=== PATIENT | male | born 1970 ===

== ENCOUNTER 2017-04-01 17:59 | Emergency (ER) | payer OTHER ==
[2017-04-01 18:20] VITALS: BP 143/73; PULSE 88; RESP 18; TEMP 98.2; O2SAT 99
--- NOTE | 2017-04-01 20:02 | C.PDOC ---
History Of Present Illness 46 y/o male presents to the ED complaining of predominantly left groin pain associated with lower back pain that radiates down left leg x 2 days. 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 He reports of decreased sensation in lower leg and was concerned because he noticed some swelling to his lower leg area, specifically his veins. Time Seen by Provider: 04/01/17 18:32 Chief Complaint (Nursing): Lower Extremity Problem/Injury History Per: Patient History/Exam Limitations: no limitations Onset/Duration Of Symptoms: Days (2 days ago) Current Symptoms Are (Timing): Still Present - Hip Description Of Injury: Other (jumped off garbage truck) Past Medical History Reviewed: Historical Data, Nursing Documentation, Vital Signs Vital Signs: Last Vital Signs Temp 98.2 F 04/01/17 18:17 Pulse 88 04/01/17 18:17 Resp 18 04/01/17 18:17 BP 143/73 04/01/17 18:17 Pulse Ox 99 04/04/17 18:43 - Medical History PMH: No Chronic Diseases Surgical History: No Surg Hx Family History: States: Unknown Family Hx - Social History Hx Tobacco Use: No Hx Alcohol Use: No Hx Substance Use: No - Immunization History Hx Tetanus Toxoid Vaccination: No Review Of Systems Constitutional: Negative for: Fever Musculoskeletal: Positive for: Back Pain (lower back pain), Leg Pain (hip pain that raidates down left leg) Neurological: Negative for: Weakness Physical Exam - Physical Exam Appears: Non-toxic, No Acute Distress Skin: Normal Color, Warm Head: Atraumatic Eye(s): bilateral: Normal Inspection Neck: Normal ROM, No Midline Cervical Tenderness Cardiovascular: Rhythm Regular, No Murmur Respiratory: Normal Breath Sounds, No Wheezing Gastrointestinal/Abdominal: Soft, No Tenderness Back: Normal Inspection, Other (tenderness to left lumbar area) Extremity: Normal ROM, Tenderness (to left inguinal area, legft lateral calf), No Pedal Edema, Calf Tenderness (mild left posterior and lateral calf tenderness , no erythema or warmth), Other (ms 5/5; decreased sensation to anterior and lateral left lower leg) Pulses: Left Femoral: Normal, Right Femoral: Normal, Left Dorsalis Pedis: Normal , Right Dorsalis Pedis: Normal Neurological/Psych: Oriented x3, Normal Speech, Normal Motor, No Normal Sensation (mild decreased sensation left lateral calf) Gait: Steady ED Course And Treatment O2 Sat by Pulse Oximetry: 99 (RA) Pulse Ox Interpretation: Normal Medical Decision Making Medical Decision Making: Time: --20:22 Impression: --Musculoskeletal pain Plan: --toradol 30mg IM --Left Hip min 2v w/ pelvis X-ray Reassess -- Scribe Attestation: Documented by Erick Becker acting as a scribe for TANNA Villalobos. pt feeling better after toradol, no fx noted on xray. us lle by Dr Albarado neg for femoral or popliteal dvt. Disposition Counseled Patient/Family Regarding: Studies Performed, Diagnosis, Need For Followup, Rx Given - Disposition Referrals: [facility] [Outside] Disposition: HOME/ ROUTINE Disposition Time: 21:24 Condition: IMPROVED Additional Instructions: Please avoid heavy lifting and jumping. Take ibuprofen as prescribed. Follow up in medical clinic. Return to ER for any worse symptoms. Prescriptions: Naproxen 500 mg PO BID #20 tab Instructions: Groin Strain (ED) Forms: General Discharge Instructions, [facility] (Arabic), Work Excuse - Clinical Impression Clinical Impression: Strain of groin - Scribe Statement Scribe Attestation: Documented by Erick Becker acting as a scribe for TANNA Villalobos.
--- NOTE | 2017-04-02 10:43 | RAD ---
PROCEDURE: Left Hip X-ray Radiographs. HISTORY: groin pain radiating to lower leg COMPARISON: None. FINDINGS: BONES: Normal. No fracture. JOINTS: Normal. SOFT TISSUES: Normal. OTHER FINDINGS: None. IMPRESSION: Normal left hip radiographs.
== END 2017-04-01 21:41 | disposition home or self-care (01) ==
LOC: C.ER 17:59
DX: S39.011A Strain of muscle, fascia and tendon of abdomen, initial encounter (principal); X50.1XXA Overexertion from prolonged static or awkward postures, initial encounter; Y92.89 Other specified places as the place of occurrence of the external cause
CPT/HCPCS: 73502; 96372; 99283; J1885

== ENCOUNTER 2017-05-14 09:38 | Emergency (ER) | payer OTHER ==
[2017-05-14 10:06] VITALS: BMI 30.5
[2017-05-14 10:11] VITALS: BP 120/79; PULSE 73; RESP 18; TEMP 97.9; O2SAT 98
--- NOTE | 2017-05-14 11:23 | C.PDOC ---
History Of Present Illness Pt lifted a heavy object at work this morning and hand sudden onset of left lower back/left buttock pain radiating down left thigh. Time Seen by Provider: 05/14/17 10:27 Chief Complaint (Nursing): Back Pain History Per: Patient Onset/Duration Of Symptoms: Hrs (this morning), Sudden Onset Current Symptoms Are (Timing): Still Present Quality Of Discomfort: "Pain" Severity: Moderate Previous Symptoms: Back Pain Associated Symptoms: None Additional History Per: Prior Records Past Medical History Reviewed: Historical Data, Nursing Documentation, Vital Signs Vital Signs: Last Vital Signs Temp 97.9 F 05/14/17 10:06 Pulse 73 05/14/17 10:06 Resp 18 05/14/17 10:06 BP 120/79 05/14/17 10:06 Pulse Ox 98 05/14/17 11:23 - Medical History PMH: No Chronic Diseases Surgical History: No Surg Hx Family History: States: Unknown Family Hx - Social History Hx Tobacco Use: No Hx Alcohol Use: No Hx Substance Use: No - Immunization History Hx Tetanus Toxoid Vaccination: No Hx Influenza Vaccination: No Hx Pneumococcal Vaccination: No Review Of Systems Except As Marked, All Systems Reviewed And Found Negative. Constitutional: Negative for: Fever, Weakness Cardiovascular: Negative for: Chest Pain Respiratory: Negative for: Shortness of Breath Gastrointestinal: Negative for: Vomiting, Abdominal Pain Genitourinary: Negative for: Dysuria, Incontinence, Hematuria Musculoskeletal: Negative for: Neck Pain Skin: Negative for: Rash Neurological: Negative for: Weakness, Numbness Physical Exam - Physical Exam Appears: Non-toxic, No Acute Distress Skin: Normal Color, Warm, Dry, No Rash Head: Atraumatic, Normacephalic Eye(s): bilateral: Normal Inspection, PERRL, EOMI Neck: Normal ROM, Supple Cardiovascular: Rhythm Regular Respiratory: Normal Breath Sounds, No Accessory Muscle Use Gastrointestinal/Abdominal: Soft, No Tenderness, No Mass Back: No CVA Tenderness, No Vertebral Tenderness Extremity: Normal ROM, No Pedal Edema, No Calf Tenderness Neurological/Psych: Oriented x3, Normal Motor, Normal Sensation ED Course And Treatment O2 Sat by Pulse Oximetry: 98 Pulse Ox Interpretation: Normal Reassessment Condition: Improved Disposition Counseled Patient/Family Regarding: Diagnosis, Need For Followup, Rx Given - Disposition Referrals: [facility] [Outside] Disposition: HOME/ ROUTINE Disposition Time: 11:37 Condition: IMPROVED Additional Instructions: Follow up with your doctor or in the clinic for further evaluation and treatment. Return to the ER if you develop weakness, numbness, trouble urinating , worsening of symptoms or if you have any other concerns. Prescriptions: Naproxen [Naprosyn] 1 tab PO BID PRN #20 PRN Reason: Pain Instructions: Sciatica (DC) - Clinical Impression Clinical Impression: Left sided sciatica
== END 2017-05-14 12:12 | disposition home or self-care (01) ==
LOC: C.ER 09:38
DX: M54.32 Sciatica, left side (principal)

== ENCOUNTER 2017-09-07 08:01 | Inpatient (IN) | payer OTHER ==
[2017-09-07 08:01] VITALS: BMI 30.5
[2017-09-07] MEDS ORDERED: Piperacillin/Tazobact 3.375 GM in Sodium Chloride 100 ML IVPB STA (08:16)
[2017-09-07] MEDS ORDERED: Sodium Chloride 0.9% 1,000 ML IV ONE (08:16)
[2017-09-07] MEDS ORDERED: Vancomycin 1 gm/NS 200 ml 1 GM/200 ML BAG IVPB STA (08:28)
[2017-09-07 08:35] LABS: BASO # 0.1 K/uL (0.0-0.2); BASO % 0.5 % (0.0-2.0); EOS % 0.1 % (0.0-4.0); HEMOGLOBIN 13.3 g/dL (12.0-18.0); LYMPH # 0.5 K/uL (1.0-4.3); LYMPH % 3.4 % (20.0-40.0); MEAN CELL VOLUME 79.7 fL (80.0-94.0); MEAN CORPUSCULAR HEMOGLOBIN 26.6 pg (27.0-31.0); MEAN CORPUSCULAR HGB CONC 33.4 g/dL (33.0-37.0); MEAN PLATELET VOLUME 7.5 fL (7.2-11.7); MONO # 0.6 K/uL (0.0-0.8); MONO % 4.2 % (0.0-10.0); NEUT # 13.9 K/uL (1.8-7.0); NEUT % 91.8 % (50.0-75.0); NRBC % 0.1 % (0.0-2.0); PLATELET COUNT 225 K/uL (130-400); RBC 4.99 Mil/uL (4.40-5.90); RED CELL DISTRIBUTION WIDTH 13.5 % (11.5-14.5); WHITE BLOOD COUNT 15.1 K/uL (4.8-10.8)
[2017-09-07 08:45] LABS: INR 1.4; PROTHROMBIN TIME 15.7 SECONDS (9.7-12.2)
[2017-09-07 08:53] LABS: ALBUMIN 4.1 g/dL (3.5-5.0); ALT/SGPT 36 U/L (21-72); AST/SGOT 34 U/L (17-59); BLOOD UREA NITROGEN 12 mg/dL (9-20); CALCIUM 8.5 mg/dl (8.6-10.4); GFR AFRICAN-AMERICAN > 60; GFR NON-AFRICAN AMERICAN > 60; LIPASE 23 U/L (23-300)
[2017-09-07 09:02] LABS: BANDS 9 % (0-2); LYMPHOCYTE 4 % (20-40); MONOCYTE 4 % (0-10); NEUTROPHIL 83 % (50-75); TOTAL CELLS COUNTED 100
[2017-09-07 09:03] LABS: PLATELET ESTIMATE NORMAL (NORMAL)
[2017-09-07 09:12] LABS: URINE BILIRUBIN NEGATIVE (NEGATIVE); URINE BLOOD 1+ (NEGATIVE); URINE CLARITY Clear (Clear); URINE COLOR Yellow (YELLOW); URINE GLUCOSE (UA) 1+ mg/dL (Normal); URINE LEUKOCYTE ESTERASE NEG Leu/uL (Negative); URINE PROTEIN 2+ mg/dL (NEGATIVE)
--- NOTE | 2017-09-07 09:17 | C.PDOC ---
History Of Present Illness 47-year-old male, presents to the emergency department with complaints of scrotal swelling, pain, dysuria, nausea, and tactile fever for the past few days. Patient denies any vomiting, back pain, shortness of breath or any other associated symptoms. No other complaints at this time. Time Seen by Provider: 09/07/17 08:10 Chief Complaint (Nursing): Male Genitourinary History Per: Patient History/Exam Limitations: no limitations Onset/Duration Of Symptoms: Days Current Symptoms Are (Timing): Still Present Severity: Moderate Past Medical History Reviewed: Historical Data, Nursing Documentation, Vital Signs Vital Signs: Last Vital Signs Temp 98.2 F 09/07/17 15:30 Pulse 93 H 09/07/17 15:30 Resp 20 09/07/17 15:30 BP 111/65 09/07/17 15:30 Pulse Ox 96 09/07/17 15:30 Family History: States: No Known Family Hx - Social History Hx Tobacco Use: No Hx Alcohol Use: Yes Hx Substance Use: No - Immunization History Hx Tetanus Toxoid Vaccination: No Hx Influenza Vaccination: No Hx Pneumococcal Vaccination: No Review Of Systems Except As Marked, All Systems Reviewed And Found Negative. Constitutional: Positive for: Fever. Negative for: Chills Respiratory: Negative for: Cough, Shortness of Breath Gastrointestinal: Negative for: Nausea, Vomiting Genitourinary: Positive for: Dysuria, Scrotal Pain (+swelling) Neurological: Negative for: Weakness, Numbness, Headache, Dizziness Physical Exam - Physical Exam Appears: Non-toxic, No Acute Distress Skin: Normal Color, Warm, Dry Head: Atraumatic, Normacephalic Eye(s): bilateral: Normal Inspection, PERRL, EOMI Nose: Normal Oral Mucosa: Moist Lips: Normal Appearing Neck: Normal ROM Cardiovascular: Rhythm Regular, No Murmur Respiratory: Normal Breath Sounds, No Accessory Muscle Use Gastrointestinal/Abdominal: Soft, No Tenderness, No Guarding, No Rebound Back: Normal Inspection Male Genital: Other (swelling and erythema to left scrotal area with perineum involvement, no crepitus. No sign of gangrene) Extremity: Normal ROM, No Deformity, No Swelling Neurological/Psych: Oriented x3, Normal Speech ED Course And Treatment - Laboratory Results Result Diagrams: 09/07/17 08:31 09/07/17 08:31 O2 Sat by Pulse Oximetry: 97 (RA) Pulse Ox Interpretation: Normal Medical Decision Making Medical Decision Making: Surgery resident paged at 830 am, 9 am, 11am- awaiting call back surgical consult for Dr. Maher urology consult for Dr. Mundo Rush discussed with hospatalist and will admit to medical surgical floor 1500 - discussed with surgical garment fitter and since case involves scrotal abscess will cancel surgical consult for now. . Disposition Discussed With Dr.: Jose Fitzgerald Doctor Will See Patient In The: ED Counseled Patient/Family Regarding: Studies Performed, Diagnosis - Disposition Disposition: HOSPITALIZED Disposition Time: 10:36 Condition: FAIR - Clinical Impression Clinical Impression: Scrotal abscess - Scribe Statement The provider has reviewed the documentation as recorded by the Scribe (Sujatha Loera) All medical record entries made by the Scribe were at my direction and personally dictated by me. I have reviewed the chart and agree that the record accurately reflects my personal performance of the history, physical exam, medical decision making, and the department course for this patient. I have also personally directed, reviewed, and agree with the discharge instructions and disposition.
--- NOTE | 2017-09-07 10:06 | US ---
HISTORY: scrotal pain apparently the pain is on each side of the scrotum slightly worse in the left Peter left scrotal swelling reference. According to the technologist the patient's history is that of an abrupt clinical presentation- starting last night TECHNIQUE: Realtime sonography through the scrotum with color and doppler flow. COMPARISON: None Available. FINDINGS: RIGHT TESTICLE: Measures 4.1 x 1.5 x 2 point sick cm. Normal echotexture and flow. RIGHT EPIDIDYMIS: The anatomy of the right epididymis is indeterminate from probably portions of the right epididymal head are identified measuring 1.0 x 0.9 x 1.1 cm. The flow here appear within normal limits. LEFT TESTICLE: Measures 3.9 x 1.9 x 2.4 cm. Normal echotexture and flow. LEFT EPIDIDYMIS: The anatomy of the left epididymis is also indeterminate more so than that on the right. Cm. The flow here appears probably top-normal to minimally increased HYDROCELE: No large right sided hydroceles are noted. Anterior to the left testicle it is a each elongated homogeneously hypoechoic collection walled which may represent an early forming abscess or a septic/ infectious/inflammatory complex left hydrocele. This collection measures 3.0 x 1.2 x 4.1 cm. VARICOCELE: None. OTHER FINDINGS: Marked swelling an apparent subcutaneous and dermal thickening inferior to the left testicle. There are calcifications extrinsic to the testicle within the scrotal sac present. IMPRESSION: No intratesticular masses identified. 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 A developing left intrascrotal extratesticular abscess/ or a septic/ infectious/inflammatory complex left hydrocele needs to be considered. Asymmetric left skin and left subcutaneous edema and thickening -affecting the left scrotal sac. The type of infection and or inflammatory etiology is unknown. A preceding bilateral epididymitis process is suspect -most notably affecting the left. Urological follow-up consultation recommended
[2017-09-07] MEDS ORDERED: Morphine 4 MG/ML VIAL IV STA (10:20)
--- NOTE | 2017-09-07 12:03 | CP.PCM.HP ---
<Tay Santiago - Last Filed: 09/07/17 12:51> History of Present Illness - History of Present Illness History of Present Illness: CC: swollen testicles HPI: Mr Mathis is a 47 year old male with no past medical history (due to not seeing a PMD) who presents to [facility] ER because he stated he had a sudden onset of scrotal pain and swelling which began yesterday morning. He said this sudden pain and swelling was not preceded by erythema, urinary symptoms, fevers , or genital pain. The nature of his complain is completely sudden in onset. 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 He said since the swelling began, it has become progressively worse. The swelling and pain is worse on the left scrotum. Mild pain on urination. Admits to suprapubic pain. He had a temperate of 100.3 yesterday for which he took a motrin which resolved the high temp. Denies abnormal bowel movements, abdominal pain, chest pain, nausea, vomiting. PMHx: denies PSHx: denies Allergies: denies Home meds: none FamHx: Mother with asthma and CAD SocialHx: smokes 3 cigs per day for past 17 years, social alcohol use, denies illicit drug use, works in sanitation, lives at home with and 2 kids PMD: none Code Status: Full Code Emergency Contact: () Jess Cordero [phone] Present on Admission - Present on Admission Any Indicators Present on Admission: No Review of Systems - Constitutional Constitutional: Fever, Headache. absent: Chills, Fatigue, Lethargy - EENT Eyes: absent: Blurred Vision Nose/Mouth/Throat: absent: Nasal Congestion - Cardiovascular Cardiovascular: absent: Chest Pain, Palpitations - Respiratory Respiratory: absent: Cough, Dyspnea, Dyspnea on Exertion - Gastrointestinal Gastrointestinal: Abdominal Pain. absent: Constipation, Diarrhea, Nausea, Vomiting Additional comments: suprapubic pain - Genitourinary Genitourinary: Dysuria. absent: Flank Pain, Freq UTI - Musculoskeletal Musculoskeletal: Back Pain - Integumentary Integumentary: absent: Bleeding Lesions - Neurological Neurological: absent: Confusion Past Patient History - Past Social History Smoking Status: Current Some Days Smoker - PSYCHIATRIC Hx Substance Use: No - SURGICAL HISTORY Hx Surgeries: No - ANESTHESIA Hx Anesthesia: No Meds Allergies/Adverse Reactions: Allergies Allergy/AdvReac Type Severity Reaction Status Date / Time No Known Allergies Allergy Verified 09/07/17 08:05 Physical Exam - Constitutional Appears: Well, Non-toxic, No Acute Distress - Head Exam Head Exam: ATRAUMATIC, NORMAL INSPECTION - Eye Exam Eye Exam: EOMI. absent: Scleral icterus Pupil Exam: PERRL - ENT Exam ENT Exam: Mucous Membranes Moist - Neck Exam Neck exam: Positive for: Full Rom, Normal Inspection. Negative for: Tenderness - Respiratory Exam Respiratory Exam: Clear to Auscultation Bilateral, NORMAL BREATHING PATTERN. absent: Rales, Rhonchi, Wheezes - Cardiovascular Exam Cardiovascular Exam: Tachycardia, REGULAR RHYTHM, +S1, +S2. absent: JVD, Systolic Murmur - GI/Abdominal Exam GI & Abdominal Exam: Normal Bowel Sounds, Soft, Tenderness. absent: Distended, Firm, Guarding, Hernia, Rebound Additional comments: suprapubic tenderness L>R - Exam Exam: Scrotal Swelling, Testicular Tenderness External exam: Swelling. absent: NORMAL EXTERNAL EXAM Additional comments: Prominent scrotal swelling L>R with perineum involvement, no signs of gangrene scrotum tender to palpation - Extremities Exam Extremities exam: Positive for: normal capillary refill, normal inspection. Negative for: calf tenderness - Back Exam Back exam: NORMAL INSPECTION. absent: CVA tenderness (L), CVA tenderness (R) - Neurological Exam Neurological exam: Alert, CN II-XII Intact, Oriented x3 - Psychiatric Exam Psychiatric exam: Normal Affect, Normal Mood - Skin Skin Exam: Intact, Normal Color, Warm Results - Vital Signs Recent Vital Signs: Last Vital Signs Temp 98.4 F 09/07/17 10:28 Pulse 100 H 09/07/17 11:40 Resp 18 09/07/17 11:40 BP 125/81 09/07/17 11:40 Pulse Ox 99 09/07/17 11:40 - Labs Result Diagrams: 09/07/17 08:31 09/07/17 08:31 Labs: Laboratory Results - last 24 hr 09/07/17 09/07/17 09/07/17 08:31 08:31 08:31 WBC 15.1 H RBC 4.99 Hgb 13.3 Hct 39.8 MCV 79.7 L MCH 26.6 L MCHC 33.4 RDW 13.5 Plt Count 225 MPV 7.5 Neut % (Auto) 91.8 H Lymph % (Auto) 3.4 L [place] % (Auto) 4.2 Eos % (Auto) 0.1 Baso % (Auto) 0.5 Neut # (Auto) 13.9 H Lymph # (Auto) 0.5 L [place] # (Auto) 0.6 Eos # (Auto) 0.0 Baso # (Auto) 0.1 Neutrophils % (Manual) 83 H Band Neutrophils % 9 H Lymphocytes % (Manual) 4 L Monocytes % (Manual) 4 Platelet Estimate Normal RBC Morphology Normal PT INR APTT Sodium 136 Potassium 3.6 Chloride 102 Carbon Dioxide 23 Anion Gap 16 BUN 12 Creatinine 1.0 Est GFR ( Amer) > 60 Est GFR (Non-Af Amer) > 60 Random Glucose 194 H Lactic Acid 1.8 Calcium 8.5 L Total Bilirubin 2.1 H AST 34 ALT 36 Alkaline Phosphatase 84 Total Protein 8.1 Albumin 4.1 Globulin 4.0 H Albumin/Globulin Ratio 1.0 Lipase 23 Urine Color Urine Clarity Urine pH Ur Specific [place] Urine Protein Urine Glucose (UA) Urine Ketones Urine Blood Urine Nitrate Urine Bilirubin Urine Urobilinogen Ur Leukocyte Esterase Urine WBC (Auto) Urine RBC (Auto) 09/07/17 09/07/17 08:31 08:52 WBC RBC Hgb Hct MCV MCH MCHC RDW Plt Count MPV Neut % (Auto) Lymph % (Auto) [place] % (Auto) Eos % (Auto) Baso % (Auto) Neut # (Auto) Lymph # (Auto) [place] # (Auto) Eos # (Auto) Baso # (Auto) Neutrophils % (Manual) Band Neutrophils % Lymphocytes % (Manual) Monocytes % (Manual) Platelet Estimate RBC Morphology PT 15.7 H INR 1.4 APTT 29 Sodium Potassium Chloride Carbon Dioxide Anion Gap BUN Creatinine Est GFR ( Amer) Est GFR (Non-Af Amer) Random Glucose Lactic Acid Calcium Total Bilirubin AST ALT Alkaline Phosphatase Total Protein Albumin Globulin Albumin/Globulin Ratio Lipase Urine Color Yellow Urine Clarity Clear Urine pH 7.0 Ur Specific [place] 1.021 Urine Protein 2+ H Urine Glucose (UA) 1+ H Urine Ketones Trace Urine Blood 1+ H Urine Nitrate Negative Urine Bilirubin Negative Urine Urobilinogen 2.0 Ur Leukocyte Esterase Neg Urine WBC (Auto) 2 Urine RBC (Auto) 12 H Assessment & Plan (1) Scrotal abscess Assessment and Plan: Meets Sepsis criteria, elevated wbc, tachy, bands, with source Consult surgery, Dr Maher Consult urology, Dr Dora Rush Consult infectious disease, Dr Feliz Will order EKG, CXR, coags in case patient goes to OR, will keep NPO for now Diagnostics: UA: 2+ protein, 1+ glucose, 1+ blood, rbc 12 F/U Blood cx, Urine cx Imaging: Testicular Ultrasound 09/07: * No intratesticular masses identified. 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 A developing left intrascrotal extratesticular abscess/ or a septic/ infectious/ inflammatory complex left hydrocele needs to be considered. Asymmetric left skin and left subcutaneous edema and thickening -affecting the left scrotal sac. The type of infection and or inflammatory etiology is unknown. A preceding bilateral epididymitis process is suspect -most notably affecting the left. Urological follow-up consultation recommended. Meds: Meropenem 500mg IVP Q8H Florastor 250mg PO BID Ketorolac 15mg IVP Q6H PRN for moderate pain Ketorolac 30mg IVP Q6H PRN for severe pain Status: Acute Priority: High (2) Prophylactic measure Assessment and Plan: Protonix 40mg PO QD SCDs NPO for now Status: Acute Priority: Low <Jose Fitzgerald - Last Filed: 09/07/17 22:01> Results - Vital Signs Recent Vital Signs: Last Vital Signs Temp 98.2 F 09/07/17 15:30 Pulse 93 H 09/07/17 15:30 Resp 20 09/07/17 15:30 BP 111/65 09/07/17 15:30 Pulse Ox 97 09/07/17 17:29 - Labs Result Diagrams: 09/07/17 08:31 09/07/17 08:31 Labs: Laboratory Results - last 24 hr 09/07/17 09/07/17 09/07/17 08:31 08:31 08:31 WBC 15.1 H RBC 4.99 Hgb 13.3 Hct 39.8 MCV 79.7 L MCH 26.6 L MCHC 33.4 RDW 13.5 Plt Count 225 MPV 7.5 Neut % (Auto) 91.8 H Lymph % (Auto) 3.4 L [place] % (Auto) 4.2 Eos % (Auto) 0.1 Baso % (Auto) 0.5 Neut # (Auto) 13.9 H Lymph # (Auto) 0.5 L [place] # (Auto) 0.6 Eos # (Auto) 0.0 Baso # (Auto) 0.1 Neutrophils % (Manual) 83 H Band Neutrophils % 9 H Lymphocytes % (Manual) 4 L Monocytes % (Manual) 4 Platelet Estimate Normal RBC Morphology Normal PT INR APTT Sodium 136 Potassium 3.6 Chloride 102 Carbon Dioxide 23 Anion Gap 16 BUN 12 Creatinine 1.0 Est GFR ( Amer) > 60 Est GFR (Non-Af Amer) > 60 Random Glucose 194 H Lactic Acid 1.8 Calcium 8.5 L Total Bilirubin 2.1 H AST 34 ALT 36 Alkaline Phosphatase 84 Total Protein 8.1 Albumin 4.1 Globulin 4.0 H Albumin/Globulin Ratio 1.0 Lipase 23 Urine Color Urine Clarity Urine pH Ur Specific [place] Urine Protein Urine Glucose (UA) Urine Ketones Urine Blood Urine Nitrate Urine Bilirubin Urine Urobilinogen Ur Leukocyte Esterase Urine WBC (Auto) Urine RBC (Auto) 09/07/17 09/07/17 08:31 08:52 WBC RBC Hgb Hct MCV MCH MCHC RDW Plt Count MPV Neut % (Auto) Lymph % (Auto) [place] % (Auto) Eos % (Auto) Baso % (Auto) Neut # (Auto) Lymph # (Auto) [place] # (Auto) Eos # (Auto) Baso # (Auto) Neutrophils % (Manual) Band Neutrophils % Lymphocytes % (Manual) Monocytes % (Manual) Platelet Estimate RBC Morphology PT 15.7 H INR 1.4 APTT 29 Sodium Potassium Chloride Carbon Dioxide Anion Gap BUN Creatinine Est GFR ( Amer) Est GFR (Non-Af Amer) Random Glucose Lactic Acid Calcium Total Bilirubin AST ALT Alkaline Phosphatase Total Protein Albumin Globulin Albumin/Globulin Ratio Lipase Urine Color Yellow Urine Clarity Clear Urine pH 7.0 Ur Specific [place] 1.021 Urine Protein 2+ H Urine Glucose (UA) 1+ H Urine Ketones Trace Urine Blood 1+ H Urine Nitrate Negative Urine Bilirubin Negative Urine Urobilinogen 2.0 Ur Leukocyte Esterase Neg Urine WBC (Auto) 2 Urine RBC (Auto) 12 H Attending/Attestation - Attestation I have personally seen and examined this patient.: Yes I have fully participated in the care of the patient.: Yes I have reviewed all pertinent clinical information: Yes Notes (Text): 09/07/17 21:59 Patient was seen and examined with resident. History, Physical, Assessment and Plan were gone over with the resident. Please also note on exam: Bilateral groin fungal rash Also on Assessment and Plan: Bilateral Fungal Rash: Nystatin Powder 2x/day for 14 days from 09/07/17 F/U Hepatitis Panel F/U HIV Panel F/U MRSA Screen Spoke with Urology Dr. Mundo Rush: would like the patient on 24 to 48 hours of IV antibiotics to see if there is improvement in the scrotom and if not then consider I&D by him. Jose Fitzgerald D.O.
[2017-09-07] MEDS ORDERED: Pantoprazole 40 mg EC Tab PO SCH (12:45)
[2017-09-07] MEDS: Meropenem 500 MG in Sodium Chloride 0.9% 100 ML IVPB SCH ×2 (13:58→21:07)
--- NOTE | 2017-09-07 14:14 | RAD ---
HISTORY: pre-op COMPARISON: No prior. TECHNIQUE: Chest PA and lateral FINDINGS: LUNGS: No active pulmonary disease. PLEURA: No significant pleural effusion identified. No pneumothorax apparent. CARDIOVASCULAR: Normal. OSSEOUS STRUCTURES: No significant abnormalities. VISUALIZED UPPER ABDOMEN: Normal. OTHER FINDINGS: None. IMPRESSION: No active disease.
[2017-09-07] MEDS: Saccharomyces Boulardi 250 mg Cap PO SCH (17:31)
--- NOTE | 2017-09-07 19:03 | CP.PCM.CON ---
History of Present Illness - History of Present Illness History of Present Illness: 47 year old male presents to [facility] ER because of scrotal pain and swelling which began yesterday morning. He had a temperate of 100.3 yesterday for which he took a motrin which resolved the high temp. Denies abnormal bowel movements, abdominal pain, chest pain, nausea, vomiting. found to have scrotal cellulitis and epididmitis IV antibiotic in progress PMHx: denies PSHx: denies Allergies: denies Home meds: none FamHx: Mother with asthma and CAD SocialHx: smokes 3 cigs per day for past 17 years, social alcohol use, denies illicit drug use, works in sanitation, lives at home with and 2 kids Review of Systems - Review of Systems All systems: reviewed and no additional remarkable complaints except - Constitutional Constitutional: As Per HPI - EENT Eyes: absent: As Per HPI, Blind Spots, Blurred Vision, Change in Vision, Decreased Night Vision, Diplopia, Discharge, Dry Eye, Exophthalmos, Floaters, Irritation, Itchy Eyes, Loss of Peripheral Vision, Pain, Photophobia, Requires Corrective Lenses, Sees Flashes, Spots in Vision, Tunnel Vision, Other Visual Disturbances, Loss of Vision, Other Ears: absent: As Per HPI, Decreased Hearing, Ear Discharge, Ear Pain, Tinnitus, Abnormal Hearing, Disequilibrium, Dizziness, Other Nose/Mouth/Throat: absent: As Per HPI, Epistaxis, Nasal Congestion, Nasal Discharge, Nasal Obstruction, Nasal Trauma, Nose Pain, Post Nasal Drip, Sinus Pain, Sinus Pressure, Bleeding Gums, Change in Voice, Dental Pain, Dry Mouth, Dysphagia, Halitosis, Hoarsness, Lip Swelling, Mouth Lesions, Mouth Pain, Odynophagia, Sore Throat, Throat Swelling, Tongue Swelling, Facial Pain, Neck Pain, Neck Mass, Other - Cardiovascular Cardiovascular: absent: As Per HPI, Acrocyanosis, Chest Pain, Chest Pain at Rest , Chest Pain with Activity, Claudication, Diaphoresis, Dyspnea, Dyspnea on Exertion, Edema, Irregular Heart Rhythm, Pain Radiating to Arm/Neck/Jaw, Leg Edema, Leg Ulcers, Lightheadedness, Orthopnea, Palpitations, Paroxysmal Nocturnal Dyspnea, Pedal Edema, Radiating Pain, Rapid Heart Rate, Slow Heart Rate, Syncope, Other - Respiratory Respiratory: absent: As Per HPI, Cough, Dyspnea, Hemoptysis, Dyspnea on Exertion , Wheezing, Snoring, Stridor, Pain on Inspiration, Chest Congestion, Excessive Mucous Production, Change in Mucous Color, Pain with Coughing, Other - Gastrointestinal Gastrointestinal: absent: As Per HPI, Abdominal Pain, Belching, Bloating, Change in Bowel Habits, Change in Stool Character, Coffee Ground Emesis, Constipation, Cramping, Diarrhea, Dyspepsia, Dysphagia, Early Satiety, Excessive Flatus, Fecal Incontinence, Heartburn, Hematemesis, Hematochezia, Loose Stools, Melena, Nausea, Odynophagia, Temesmus, Vomiting, Other - Genitourinary Genitourinary: As Per HPI - Musculoskeletal Musculoskeletal: absent: As Per HPI, Abnormal Gait, Arthralgias, Atrophy, Back Pain, Deformity, Joint Swelling, Limited Range of Motion, Loss of Height, Muscle Cramps, Muscle Weakness, Myalgias, Neck Pain, Numbness, Radiating Pain into Limb, Stiffness, Tingling, Other - Integumentary Integumentary: As Per HPI - Neurological Neurological: absent: As Per HPI, Abnormal Gait, Abnormal Hearing, Abnormal Movements, Abnormal Speech, Behavioral Changes, Burning Sensations, Confusion, Convulsions, Disequilibrium, Dizziness, Numbness, Focal Weakness, Frequent Falls , Headaches, Lack of Coordination, Loss of Vision, Memory Loss, Paresthesias, Radicular Pain, Restless Legs, Sensory Deficit, Syncope, Tingling, Tremor, Vertigo, Weakness, Other Visual Disturbances, Other - Psychiatric Psychiatric: absent: As Per HPI, Abnormal Sleep Pattern, Anhedonia, Anxiety, Auditory Hallucinations, Behavioral Changes, Change in Appetite, Change in Libido, Confusion, Depression, Difficulty Concentrating, Hallucinations, Homicidal Ideation, Hopelessness, Irritability, Memory Loss, Mood Swings, Panic Attacks, Paranoia, Suicidal Ideation, Visual Hallucinations, Tactile Hallucinations, Other - Endocrine Endocrine: absent: As Per HPI, Change in Body Appearance, Change in Libido, Cold Intolorance, Deepening of Voice, Excessive Sweating, Fatigue, Flushing, Heat Intolorance, Increase in Ring/Shoe/Hat Size, Palpitations, Polydipsia, Polyphagia, Polyuria, Other - Hematologic/Lymphatic Hematologic: absent: As Per HPI, Easy Bleeding, Easy Bruising, Lymphadenopathy, Other Past Patient History - Past Medical History & Family History Past Medical History?: No - Past Social History Smoking Status: Current Some Days Smoker - MUSCULOSKELETAL/RHEUMATOLOGICAL Hx Falls: No - PSYCHIATRIC Hx Substance Use: No - SURGICAL HISTORY Hx Surgeries: No - ANESTHESIA Hx Anesthesia: No Meds Allergies/Adverse Reactions: Allergies Allergy/AdvReac Type Severity Reaction Status Date / Time No Known Allergies Allergy Verified 09/07/17 08:05 - Medications Medications: Current Medications Meropenem 500 mg/ Sodium (Chloride) 100 mls @ 200 mls/hr IVPB Q8 SILVINO PRN Reason: Protocol Last Admin: 09/07/17 13:58 Dose: 200 mls/hr Ketorolac Tromethamine (Toradol) 30 mg IVP Q6 PRN PRN Reason: Pain, severe (8-10) Last Admin: 09/07/17 14:04 Dose: 30 mg Ketorolac Tromethamine (Toradol) 15 mg IVP Q6H PRN PRN Reason: Pain, moderate (4-7) Nystatin (Nystop Topical Powder) 1 applic TOP BID [facility] Stop: 09/21/17 13:57 Last Admin: 09/07/17 17:31 Dose: 1 applic Pantoprazole Sodium (Protonix Ec Tab) 40 mg PO DAILY [facility] Last Admin: 09/07/17 14:00 Dose: 40 mg Pneumococcal Polyvalent Vaccine (Pneumovax 23 Vaccine) 0.5 ml IM .ONCE ONE Stop: 09/09/17 10:01 Saccharomyces Boulardii (Florastor) 250 mg PO BID [facility] Last Admin: 09/07/17 17:31 Dose: 250 mg Physical Exam - Constitutional Appears: Non-toxic, No Acute Distress - Head Exam Head Exam: NORMOCEPHALIC - Eye Exam Eye Exam: PERRL. absent: Scleral icterus - ENT Exam ENT Exam: Mucous Membranes Dry - Neck Exam Neck exam: Negative for: Lymphadenopathy - Respiratory Exam Respiratory Exam: Decreased Breath Sounds - Cardiovascular Exam Cardiovascular Exam: REGULAR RHYTHM - GI/Abdominal Exam GI & Abdominal Exam: Diminished Bowel Sounds, Soft. absent: Tenderness - Rectal Exam Rectal Exam: Deferred - Exam Exam: NORMAL INSPECTION - Extremities Exam Extremities exam: Negative for: pedal edema - Back Exam Back exam: absent: CVA tenderness (L), CVA tenderness (R) - Neurological Exam Neurological exam: Alert, CN II-XII Intact, Oriented x3, Reflexes Normal - Psychiatric Exam Psychiatric exam: Normal Mood - Skin Skin Exam: Dry, Intact Results - Vital Signs Recent Vital Signs: Last Vital Signs Temp 98.2 F 09/07/17 15:30 Pulse 93 H 09/07/17 15:30 Resp 20 09/07/17 15:30 BP 111/65 09/07/17 15:30 Pulse Ox 97 09/07/17 17:29 - Labs Result Diagrams: 09/07/17 08:31 09/07/17 08:31 Labs: Laboratory Results - last 24 hr 09/07/17 09/07/17 09/07/17 08:31 08:31 08:31 WBC 15.1 H RBC 4.99 Hgb 13.3 Hct 39.8 MCV 79.7 L MCH 26.6 L MCHC 33.4 RDW 13.5 Plt Count 225 MPV 7.5 Neut % (Auto) 91.8 H Lymph % (Auto) 3.[address] [place] % (Auto) 4.2 Eos % (Auto) 0.1 Baso % (Auto) 0.5 Neut # (Auto) 13.9 H Lymph # (Auto) 0.[address] [place] # (Auto) 0.6 Eos # (Auto) 0.0 Baso # (Auto) 0.1 Neutrophils % (Manual) 83 H Band Neutrophils % 9 H Lymphocytes % (Manual) 4 L Monocytes % (Manual) 4 Platelet Estimate Normal RBC Morphology Normal PT INR APTT Sodium 136 Potassium 3.6 Chloride 102 Carbon Dioxide 23 Anion Gap 16 BUN 12 Creatinine 1.0 Est GFR ( Amer) > 60 Est GFR (Non-Af Amer) > 60 Random Glucose 194 H Lactic Acid 1.8 Calcium 8.5 L Total Bilirubin 2.1 H AST 34 ALT 36 Alkaline Phosphatase 84 Total Protein 8.1 Albumin 4.1 Globulin 4.0 H Albumin/Globulin Ratio 1.0 Lipase 23 Urine Color Urine Clarity Urine pH Ur Specific [place] Urine Protein Urine Glucose (UA) Urine Ketones Urine Blood Urine Nitrate Urine Bilirubin Urine Urobilinogen Ur Leukocyte Esterase Urine WBC (Auto) Urine RBC (Auto) 09/07/17 09/07/17 08:31 08:52 WBC RBC Hgb Hct MCV MCH MCHC RDW Plt Count MPV Neut % (Auto) Lymph % (Auto) [place] % (Auto) Eos % (Auto) Baso % (Auto) Neut # (Auto) Lymph # (Auto) [place] # (Auto) Eos # (Auto) Baso # (Auto) Neutrophils % (Manual) Band Neutrophils % Lymphocytes % (Manual) Monocytes % (Manual) Platelet Estimate RBC Morphology PT 15.7 H INR 1.4 APTT 29 Sodium Potassium Chloride Carbon Dioxide Anion Gap BUN Creatinine Est GFR ( Amer) Est GFR (Non-Af Amer) Random Glucose Lactic Acid Calcium Total Bilirubin AST ALT Alkaline Phosphatase Total Protein Albumin Globulin Albumin/Globulin Ratio Lipase Urine Color Yellow Urine Clarity Clear Urine pH 7.0 Ur Specific [place] 1.021 Urine Protein 2+ H Urine Glucose (UA) 1+ H Urine Ketones Trace Urine Blood 1+ H Urine Nitrate Negative Urine Bilirubin Negative Urine Urobilinogen 2.0 Ur Leukocyte Esterase Neg Urine WBC (Auto) 2 Urine RBC (Auto) 12 H Assessment & Plan (1) Scrotal abscess Status: Acute Priority: High - Assessment and Plan (Free Text) Assessment: ? epididimitis cont iv antibiotics eval Plan: may need to add coverage for MRSA will follow clinical coourse, cultures
[2017-09-08] MEDS: Meropenem 500 MG in Sodium Chloride 0.9% 100 ML IVPB SCH ×3 (05:32→21:08)
[2017-09-08 07:35] LABS: BASO % 0.2 % (0.0-2.0); EOS % 0.2 % (0.0-4.0); HEMOGLOBIN 12.6 g/dL (12.0-18.0); LYMPH % 6.7 % (20.0-40.0); MEAN CELL VOLUME 79.4 fL (80.0-94.0); MEAN CORPUSCULAR HEMOGLOBIN 26.3 pg (27.0-31.0); MEAN CORPUSCULAR HGB CONC 33.1 g/dL (33.0-37.0); MEAN PLATELET VOLUME 7.9 fL (7.2-11.7); MONO # 1.5 K/uL (0.0-0.8); MONO % 9.4 % (0.0-10.0); NEUT % 83.5 % (50.0-75.0); PLATELET COUNT 219 K/uL (130-400); RBC 4.78 Mil/uL (4.40-5.90); RED CELL DISTRIBUTION WIDTH 13.6 % (11.5-14.5); WHITE BLOOD COUNT 15.5 K/uL (4.8-10.8)
[2017-09-08 07:41] LABS: INR 1.5; PROTHROMBIN TIME 16.5 SECONDS (9.7-12.2)
--- NOTE | 2017-09-08 07:41 | CP.PCM.PN ---
<Emily Mireles - Last Filed: 09/08/17 14:32> Subjective - Date & Time of Evaluation Date of Evaluation: 09/08/17 Time of Evaluation: 08:00 - Subjective Subjective: Patient was seen and examined at bedside this morning. Patient states he is still having lots of pain on the left side of his scrotum. He denies fever/ chills. He denies abdominal pain as well. He stated that Dr. Rush said not the eat and that he would be at bedside soon. He had no other complaints at this time. He mentioned that he was shaving down there 2 weeks ago which he thinks could have caused this. was at bedside. Objective - Vital Signs/Intake and Output Vital Signs (last 24 hours): Temp Pulse Resp BP Pulse Ox 98.4 F 94 H 20 138/82 97 09/08/17 02:14 09/08/17 00:00 09/08/17 00:00 09/08/17 00:00 09/08/17 00:00 Intake and Output: 09/08/17 09/08/17 06:59 18:59 Intake Total 770 Balance 770 - Medications Medications: Current Medications Meropenem 500 mg/ Sodium (Chloride) 100 mls @ 200 mls/hr IVPB Q8 SILVINO PRN Reason: Protocol Last Admin: 09/08/17 05:32 Dose: 200 mls/hr Ketorolac Tromethamine (Toradol) 30 mg IVP Q6 PRN PRN Reason: Pain, severe (8-10) Last Admin: 09/07/17 20:06 Dose: 30 mg Ketorolac Tromethamine (Toradol) 15 mg IVP Q6H PRN PRN Reason: Pain, moderate (4-7) Nystatin (Nystop Topical Powder) 1 applic TOP BID [facility] Stop: 09/21/17 13:57 Last Admin: 09/07/17 17:31 Dose: 1 applic Pantoprazole Sodium (Protonix Ec Tab) 40 mg PO DAILY [facility] Last Admin: 09/07/17 14:00 Dose: 40 mg Pneumococcal Polyvalent Vaccine (Pneumovax 23 Vaccine) 0.5 ml IM .ONCE ONE Stop: 09/09/17 10:01 Saccharomyces Boulardii (Florastor) 250 mg PO BID [facility] Last Admin: 09/07/17 17:31 Dose: 250 mg - Labs Labs: 09/07/17 08:31 18 08:31 PT 15.7 SECONDS (9.7-12.2) H 09/07/17 08:31 INR 1.4 09/07/17 08:31 APTT 29 SECONDS (21-34) 09/07/17 08:31 - Constitutional Appears: Non-toxic, No Acute Distress - Head Exam Head Exam: ATRAUMATIC, NORMAL INSPECTION - Eye Exam Eye Exam: EOMI - ENT Exam ENT Exam: Mucous Membranes Moist - Respiratory Exam Respiratory Exam: Clear to Ausculation Bilateral, NORMAL BREATHING PATTERN. absent: Respiratory Distress - Cardiovascular Exam Cardiovascular Exam: REGULAR RHYTHM, +S1, +S2 - GI/Abdominal Exam GI & Abdominal Exam: Soft, Normal Bowel Sounds. absent: Distended, Firm, Guarding, Tenderness Additional comments: suprapubic tenderness L> R - Exam Additional comments: Prominent scrotal swelling L>R with perineum involvement, no signs of gangrene scrotum tender to palpation - Extremities Exam Extremities Exam: Normal Inspection - Back Exam Back Exam: NORMAL INSPECTION - Neurological Exam Neurological Exam: Alert, Awake, CN II-XII Intact, Oriented x3 Neuro motor strength exam: Left Upper Extremity: 5, Right Upper Extremity: 5, Left Lower Extremity: 5, Right Lower Extremity: 5 - Psychiatric Exam Psychiatric exam: Normal Affect, Normal Mood Assessment and Plan - Assessment and Plan (Free Text) Assessment: Scrotal abscess Assessment and Plan: Dr. Rush to take to the OR this afternoon for I/D WBC 15.5 with 19 bands Tmax 101.3 overnight Consult urology, Dr Dora Rush: Spoke with Urology Dr. Mundo Rush: would like the patient on 24 to 48 hours of IV antibiotics to see if there is improvement in the scrotom and if not then consider I&D by him. Consult infectious disease, Dr Feliz - continue abx, follow cultures Preop: Chest X ray no active disease, coags wnl, EKG normal NSR Elevate scrotum Diagnostics: UA: 2+ protein, 1+ glucose, 1+ blood, rbc 12 Blood cx negative for 24 hours f/u Urine cx HIV/hepatitis negative f/u HSV, FTA ABS, RPR, G/C Imaging: Testicular Ultrasound 09/07: * No intratesticular masses identified. 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 A developing left intrascrotal extratesticular abscess/ or a septic/ infectious/ inflammatory complex left hydrocele needs to be considered. Asymmetric left skin and left subcutaneous edema and thickening -affecting the left scrotal sac. The type of infection and or inflammatory etiology is unknown. A preceding bilateral epididymitis process is suspect -most notably affecting the left. Urological follow-up consultation recommended. Meds: Doxycycline 100mg IVPB Q12 hours (started 09/08) Meropenem 500mg IVP Q8H (started 09/07) Florastor 250mg PO BID Ketorolac 15mg IVP Q6H PRN for mild pain Ketorolac 30mg IVP Q6H PRN for moderate pain Percocet 5/325 1 tab PO Q6 hours prn severe pain Prophylactic measure GI not indicated SCDs Heart healthy diet, NPO for OR today <Rudi Jorgensen - Last Filed: 09/08/17 16:14> Objective - Vital Signs/Intake and Output Vital Signs (last 24 hours): Temp Pulse Resp BP Pulse Ox 99.2 F 87 20 107/67 97 09/08/17 07:00 09/08/17 07:00 09/08/17 07:00 09/08/17 07:00 09/08/17 07:00 Intake and Output: 09/08/17 09/08/17 06:59 18:59 Intake Total 770 400 Balance 770 400 - Medications Medications: Current Medications Meropenem 500 mg/ Sodium (Chloride) 100 mls @ 200 mls/hr IVPB Q8 SILVINO PRN Reason: Protocol Last Admin: 09/08/17 14:24 Dose: 200 mls/hr Doxycycline Hyclate 100 mg/ (Sodium Chloride) 100 mls @ 100 mls/hr IVPB Q12H [facility]IL[facility]INO PRN Reason: Protocol Last Admin: 09/08/17 10:07 Dose: 100 mls/hr Ketorolac Tromethamine (Toradol) 30 mg IVP Q6H PRN PRN Reason: Pain, moderate (4-7) Nystatin (Nystop Topical Powder) 1 applic TOP BID [facility] Stop: 09/21/17 13:57 Last Admin: 09/08/17 10:10 Dose: 1 applic Oxycodone/Acetaminophen (Percocet 5/325 Mg Tab) 1 tab PO Q6 PRN PRN Reason: Pain, severe (8-10) Stop: 09/11/17 12:01 Pneumococcal Polyvalent Vaccine (Pneumovax 23 Vaccine) 0.5 ml IM .ONCE ONE Stop: 09/09/17 10:01 Saccharomyces Boulardii (Florastor) 250 mg PO BID [facility] Last Admin: 09/08/17 10:10 Dose: Not Given - Labs Labs: 09/08/17 07:23 09/08/17 07:23 PT 16.5 SECONDS (9.7-12.2) H 09/08/17 07:23 INR 1.5 09/08/17 07:23 APTT 29 SECONDS (21-34) 09/08/17 07:23 Attending/Attestation - Attestation I have personally seen and examined this patient.: Yes I have fully participated in the care of the patient.: Yes I have reviewed all pertinent clinical information, including history, physical exam and plan: Yes Notes (Text): 09/08/17 16:14 Medical attending: Patient was seen and examined by me, agrees the above note by emergency medical service manager. We ordered several additional testing including GC chlamydia, HSV 1 and 2, RPR, FTA-ABS, and also hepatitis The patient was already on IV meropenem, we added on doxycycline. From what I understand later on the patient may undergo urological procedures. He's currently nothing by mouth at this moment. Thank you very much, Rudi Jorgensen
[2017-09-08 08:00] LABS: ALB/GLOB RATIO 0.9 (1.0-2.1); ALBUMIN 3.7 g/dL (3.5-5.0); ALT/SGPT 32 U/L (21-72); AST/SGOT 31 U/L (17-59); BLOOD UREA NITROGEN 19 mg/dL (9-20); CALCIUM 8.5 mg/dl (8.6-10.4); GFR AFRICAN-AMERICAN > 60; GFR NON-AFRICAN AMERICAN > 60
[2017-09-08 08:25] LABS: HEPATITIS B SURFACE AG Negative (NEGATIVE)
[2017-09-08 08:31] LABS: HEPATITIS A IGM NEGATIVE (NEGATIVE); HEPATITIS B CORE AB NEGATIVE (NEGATIVE)
[2017-09-08 08:43] LABS: HEPATITIS C ANTIBODY NEGATIVE (NEGATIVE)
[2017-09-08 08:58] LABS: BANDS 12 % (0-2); LYMPHOCYTE 7 % (20-40); MONOCYTE 8 % (0-10); NEUTROPHIL 73 % (50-75); PLATELET ESTIMATE NORMAL (NORMAL); TOTAL CELLS COUNTED 100
[2017-09-08] MEDS ORDERED: Oxycodone/Acetaminophen 5/325 mg Tab PO PRN (10:08)
[2017-09-08] MEDS: Saccharomyces Boulardi 250 mg Cap PO SCH ×2 (10:10→17:25)
--- NOTE | 2017-09-08 17:16 | CARD ---
APPROVED REPORT EKG Measurement Heart [id number] <Conclusion> Normal sinus rhythm Normal ECG
[2017-09-08] MEDS ORDERED: metroNIDAZOLE IV 500 mg/100 ml 250 MG in Premixed IV 1 EA IVPB STA (17:57)
[2017-09-08] MEDS ORDERED: Propofol 10 mg/ml Inj (20 ML) ONE ×2 (18:02→18:13)
--- NOTE | 2017-09-08 18:21 | CP.PCM.PN ---
Subjective - Date & Time of Evaluation Date of Evaluation: 09/08/17 Time of Evaluation: 07:00 - Subjective Subjective: going to OR for drainage Objective - Vital Signs/Intake and Output Vital Signs (last 24 hours): Temp Pulse Resp BP Pulse Ox 100.3 F H 81 20 110/72 97 09/08/17 15:30 09/08/17 15:30 09/08/17 15:30 09/08/17 15:30 09/08/17 15:30 Intake and Output: 09/08/17 09/08/17 06:59 18:59 Intake Total 770 400 Balance 770 400 - Medications Medications: Current Medications Meropenem 500 mg/ Sodium (Chloride) 100 mls @ 200 mls/hr IVPB Q8 SILVINO PRN Reason: Protocol Last Admin: 09/08/17 14:24 Dose: 200 mls/hr Doxycycline Hyclate 100 mg/ (Sodium Chloride) 100 mls @ 100 mls/hr IVPB Q12H SILVINO PRN Reason: Protocol Last Admin: 09/08/17 10:07 Dose: 100 mls/hr Metronidazole 250 mg/ (Miscellaneous) 50 mls @ 100 mls/hr IVPB STAT STA PRN Reason: Protocol Stop: 09/08/17 18:26 Ketorolac Tromethamine (Toradol) 30 mg IVP Q6H PRN PRN Reason: Pain, moderate (4-7) Nystatin (Nystop Topical Powder) 1 applic TOP BID [facility] Stop: 09/21/17 13:57 Last Admin: 09/08/17 17:25 Dose: Not Given Oxycodone/Acetaminophen (Percocet 5/325 Mg Tab) 1 tab PO Q6 PRN PRN Reason: Pain, severe (8-10) Stop: 09/11/17 12:01 Pneumococcal Polyvalent Vaccine (Pneumovax 23 Vaccine) 0.5 ml IM .ONCE ONE Stop: 09/09/17 10:01 Saccharomyces Boulardii (Florastor) 250 mg PO BID [facility] Last Admin: 09/08/17 17:25 Dose: Not Given - Labs Labs: 09/08/17 07:23 09/08/17 07:23 PT 16.5 SECONDS (9.7-12.2) H 09/08/17 07:23 INR 1.5 09/08/17 07:23 APTT 29 SECONDS (21-34) 09/08/17 07:23 - Constitutional Appears: Non-toxic, Chronically Ill - Head Exam Head Exam: NORMOCEPHALIC - Eye Exam Eye Exam: PERRL - ENT Exam ENT Exam: Mucous Membranes Dry - Neck Exam Neck Exam: absent: Lymphadenopathy - Respiratory Exam Respiratory Exam: Decreased Breath Sounds - Cardiovascular Exam Cardiovascular Exam: REGULAR RHYTHM - GI/Abdominal Exam GI & Abdominal Exam: Distended - Rectal Exam Rectal Exam: Deferred - Exam Exam: NORMAL INSPECTION - Extremities Exam Extremities Exam: absent: Pedal Edema - Back Exam Back Exam: absent: CVA tenderness (L), CVA tenderness (R) Assessment and Plan (1) Scrotal abscess Status: Acute - Assessment and Plan (Free Text) Assessment: await or cultures add Vanco
--- NOTE | 2017-09-08 18:25 | CP.PCM.PCO ---
Physician Communication Note - Physician Communication Note Physician Communication Note: Henny added to [facility]rem pending OR Cultures
[2017-09-08] MEDS ORDERED: metroNIDAZOLE IV 500 mg/100 ml 500 MG/100 ML BAG IVPB STA (19:24)
[2017-09-08] MEDS ORDERED: metroNIDAZOLE IV 500 mg/100 ml 500 MG/100 ML BAG ONE (19:32)
[2017-09-09 00:49] VITALS: RESP 20
[2017-09-09] MEDS: Meropenem 500 MG in Sodium Chloride 0.9% 100 ML IVPB SCH ×3 (05:59→21:52)
--- NOTE | 2017-09-09 06:29 | CP.PCM.PN ---
<Chavez Robins E - Last Filed: 09/09/17 06:26> Subjective - Date & Time of Evaluation Date of Evaluation: 09/09/17 Time of Evaluation: 04:25 - Subjective Subjective: Medicine progress note ( Dr. Jorgensen's service) Patient was seen and examined at bedside. Patient is s/p I & D of scrotal abscess POD #1. Patient reports that he is doing well and denies any discomfort or new complaints. Objective - Vital Signs/Intake and Output Vital Signs (last 24 hours): Temp Pulse Resp BP Pulse Ox 98.1 F 76 20 107/60 97 09/09/17 00:00 09/09/17 00:00 09/09/17 00:00 09/09/17 00:00 09/09/17 00:00 Intake and Output: 09/08/17 09/09/17 18:59 06:59 Intake Total 1150 750 Balance 1150 750 - Medications Medications: Current Medications Meropenem 500 mg/ Sodium (Chloride) 100 mls @ 200 mls/hr IVPB Q8 [facility] PRN Reason: Protocol Last Admin: 09/09/17 05:59 Dose: 200 mls/hr Vancomycin HCl 1,000 mg/ (Sodium Chloride) 200 mls @ 133.333 mls/hr IVPB Q12H [facility] PRN Reason: Protocol Last Admin: 09/08/17 20:58 Dose: 133.333 mls/hr Ketorolac Tromethamine (Toradol) 30 mg IVP Q6H PRN PRN Reason: Pain, moderate (4-7) Last Admin: 09/08/17 21:04 Dose: 30 mg Nystatin (Nystop Topical Powder) 1 applic TOP BID [facility] Stop: 09/21/17 13:57 Last Admin: 09/08/17 17:25 Dose: Not Given Oxycodone/Acetaminophen (Percocet 5/325 Mg Tab) 1 tab PO Q6 PRN PRN Reason: Pain, severe (8-10) Stop: 09/11/17 12:01 Pneumococcal Polyvalent Vaccine (Pneumovax 23 Vaccine) 0.5 ml IM .ONCE ONE Stop: 09/09/17 10:01 Saccharomyces Boulardii (Florastor) 250 mg PO BID [facility] Last Admin: 09/08/17 17:25 Dose: Not Given - Labs Labs: 09/08/17 07:23 09/08/17 07:23 PT 16.5 SECONDS (9.7-12.2) H 09/08/17 07:23 INR 1.5 09/08/17 07:23 APTT 29 SECONDS (21-34) 09/08/17 07:23 - Constitutional Appears: No Acute Distress - Head Exam Head Exam: ATRAUMATIC - Eye Exam Eye Exam: EOMI - ENT Exam ENT Exam: Mucous Membranes Moist - Respiratory Exam Respiratory Exam: Clear to Ausculation Bilateral, NORMAL BREATHING PATTERN. absent: Prolonged Expiratory Phase, Rhonchi, Wheezes, Respiratory Distress - Cardiovascular Exam Cardiovascular Exam: REGULAR RHYTHM, +S1, +S2. absent: Murmur - GI/Abdominal Exam GI & Abdominal Exam: Soft, Normal Bowel Sounds. absent: Firm, Guarding, Rigid, Tenderness - Exam Additional comments: s/p I & D of scrotal abscess POD #1. Dressing is clean, dry and intact - Extremities Exam Extremities Exam: Normal Inspection. absent: Calf Tenderness, Pedal Edema - Neurological Exam Neurological Exam: Alert, Awake, Oriented x3 - Psychiatric Exam Psychiatric exam: Normal Affect - Skin Skin Exam: Normal Color Assessment and Plan (1) Scrotal abscess Assessment & Plan: Urology consult, Dr. Mundo Rush---> Help appreciated Consult infectious disease, Dr Feliz - continue abx, follow cultures S/p I & D of scrotal abscess POD #1 Diagnostics: UA: 2+ protein, 1+ glucose, 1+ blood, rbc 12, UC: Negative Blood cx negative for 24 hours HIV/hepatitis negative RPR: Nonreactive f/u HSV, FTA ABS, G/C F/u abscess culture Imaging: Testicular Ultrasound 09/07: * No intratesticular masses identified. 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 A developing left intrascrotal extratesticular abscess/ or a septic/ infectious/ inflammatory complex left hydrocele needs to be considered. Asymmetric left skin and left subcutaneous edema and thickening -affecting the left scrotal sac. The type of infection and or inflammatory etiology is unknown. A preceding bilateral epididymitis process is suspect -most notably affecting the left. Urological follow-up consultation recommended. Medications: Meropenem 500mg IV Q8H BID Vanco 1,000mg IVPB Q12H Toradol 30mg IV Q6H PRN Percocet 1 tab Q6H PRN Nystatin TOP BID Status: Acute (2) Prophylactic measure Assessment & Plan: GI not indicated SCDs Heart healthy diet All plans and management discussed with Dr. Jorgensen Status: Acute <Rudi Jorgensen - Last Filed: 09/09/17 13:02> Objective - Vital Signs/Intake and Output Vital Signs (last 24 hours): Temp Pulse Resp BP Pulse Ox 98.8 F 81 20 130/71 96 09/09/17 08:12 09/09/17 08:12 09/09/17 08:12 09/09/17 08:12 09/09/17 08:12 Intake and Output: 09/09/17 09/09/17 06:59 18:59 Intake Total 1170 Balance 1170 - Medications Medications: Current Medications Meropenem 500 mg/ Sodium (Chloride) 100 mls @ 200 mls/hr IVPB Q8 [facility] PRN Reason: Protocol Last Admin: 09/09/17 05:59 Dose: 200 mls/hr Vancomycin HCl 1,000 mg/ (Sodium Chloride) 200 mls @ 133.333 mls/hr IVPB Q12H [facility] PRN Reason: Protocol Last Admin: 09/09/17 06:59 Dose: 133.333 mls/hr Ketorolac Tromethamine (Toradol) 30 mg IVP Q6H PRN PRN Reason: Pain, moderate (4-7) Last Admin: 09/08/17 21:04 Dose: 30 mg Nystatin (Nystop Topical Powder) 1 applic TOP BID [facility] Stop: 09/21/17 13:57 Last Admin: 09/09/17 09:32 Dose: 1 applic Oxycodone/Acetaminophen (Percocet 5/325 Mg Tab) 1 tab PO Q6 PRN PRN Reason: Pain, severe (8-10) Stop: 09/11/17 12:01 Saccharomyces Boulardii (Florastor) 250 mg PO BID [facility] Last Admin: 09/09/17 09:29 Dose: 250 mg - Labs Labs: 09/09/17 07:46 09/09/17 07:46 PT 16.5 SECONDS (9.7-12.2) H 09/08/17 07:23 INR 1.5 09/08/17 07:23 APTT 29 SECONDS (21-34) 09/08/17 07:23 Attending/Attestation - Attestation I have personally seen and examined this patient.: Yes I have fully participated in the care of the patient.: Yes I have reviewed all pertinent clinical information, including history, physical exam and plan: Yes Notes (Text): 09/09/17 12:59 Medical attending: Patient was seen and examined by me. Agree with the above note by the residet The patient was actively walking the hallway in 3T. He reported the pain was controlled however he thought the scrotal sling was tight. His serologies have been negative so far including HIV, Hepatits, RPR, and blood and urine. Pending FTABS, HSV, GC/Chlymdia. He is on IV abx including meropenom and yesterday vancomycin was started as well Rudi Jorgensen
[2017-09-09 08:09] LABS: BASO % 0.2 % (0.0-2.0); EOS # 0.1 K/uL (0.0-0.7); EOS % 0.8 % (0.0-4.0); LYMPH % 8.9 % (20.0-40.0); MEAN CELL VOLUME 79.6 fL (80.0-94.0); MEAN CORPUSCULAR HEMOGLOBIN 26.6 pg (27.0-31.0); MEAN CORPUSCULAR HGB CONC 33.5 g/dL (33.0-37.0); MEAN PLATELET VOLUME 7.8 fL (7.2-11.7); MONO # 0.8 K/uL (0.0-0.8); MONO % 6.9 % (0.0-10.0); NEUT # 9.8 K/uL (1.8-7.0); NEUT % 83.2 % (50.0-75.0); PLATELET COUNT 259 K/uL (130-400); RBC 4.52 Mil/uL (4.40-5.90); RED CELL DISTRIBUTION WIDTH 13.6 % (11.5-14.5); WHITE BLOOD COUNT 11.8 K/uL (4.8-10.8)
[2017-09-09 09:11] LABS: ALB/GLOB RATIO 0.9 (1.0-2.1); ALBUMIN 3.5 g/dL (3.5-5.0); ALT/SGPT 29 U/L (21-72); AST/SGOT 22 U/L (17-59); BLOOD UREA NITROGEN 21 mg/dL (9-20); CALCIUM 8.1 mg/dl (8.6-10.4); GFR AFRICAN-AMERICAN > 60; GFR NON-AFRICAN AMERICAN > 60
[2017-09-09 09:26] LABS: BANDS 1 % (0-2); LYMPHOCYTE 7 % (20-40); MONOCYTE 8 % (0-10); NEUTROPHIL 84 % (50-75); TOTAL CELLS COUNTED 100
[2017-09-09 09:27] LABS: ANISOCYTOSIS SLIGHT; PLATELET ESTIMATE NORMAL (NORMAL)
[2017-09-09 09:28] LABS: HYPOCHROMIC SLIGHT; LARGE PLATELETS PRESENT; POLYCHROMIC SLIGHT
[2017-09-09 09:29] LABS: TOXIC GRANULATION PRESENT
[2017-09-09] MEDS: Saccharomyces Boulardi 250 mg Cap PO SCH ×2 (09:29→18:37)
[2017-09-09] MEDS ORDERED: Pneumococcal 23-Valent Vaccine IM ONE (10:00)
--- NOTE | 2017-09-10 05:07 | CP.PCM.PN ---
Addendum entered and electronically signed by Chavez Robins 09/10/17 05:15: Addition to A/P Scrotal Abscess: * Afebrile for 24 hours * Leukocytosis downtrending Original Note: <Chavez Robins - Last Filed: 09/10/17 05:04> Subjective - Date & Time of Evaluation Date of Evaluation: 09/10/17 Time of Evaluation: 04:40 - Subjective Subjective: Medicine progress note ( Dr. Jorgensen's service) Patient was seen and examined at bedside. Patient is s/p I & D of scrotal abscess POD #2. Patient reports that he is doing well and denies any discomfort or new complaints. Patient denies fever, chills, nausea, vomiting, chest pain, palpitations, SOB, abdominal pain, diarrhea/constipation or urinary difficulties. Objective - Vital Signs/Intake and Output Vital Signs (last 24 hours): Temp Pulse Resp BP Pulse Ox 98.3 F 75 20 117/67 100 09/10/17 00:00 09/10/17 00:00 09/10/17 00:00 09/10/17 00:00 09/10/17 00:00 Intake and Output: 09/09/17 09/10/17 18:59 06:59 Intake Total 600 600 Balance 600 600 - Medications Medications: Current Medications Meropenem 500 mg/ Sodium (Chloride) 100 mls @ 200 mls/hr IVPB Q8 [facility]INO PRN Reason: Protocol Last Admin: 09/09/17 21:52 Dose: 200 mls/hr Vancomycin HCl 1,000 mg/ (Sodium Chloride) 200 mls @ 133.333 mls/hr IVPB Q12H [facility] PRN Reason: Protocol Last Admin: 09/09/17 18:37 Dose: 133.333 mls/hr Ketorolac Tromethamine (Toradol) 30 mg IVP Q6H PRN PRN Reason: Pain, moderate (4-7) Last Admin: 09/08/17 21:04 Dose: 30 mg Nystatin (Nystop Topical Powder) 1 applic TOP BID [facility] Stop: 09/21/17 13:57 Last Admin: 09/09/17 18:41 Dose: Not Given Oxycodone/Acetaminophen (Percocet 5/325 Mg Tab) 1 tab PO Q6 PRN PRN Reason: Pain, severe (8-10) Stop: 09/11/17 12:01 Last Admin: 09/09/17 14:33 Dose: 1 tab Saccharomyces Boulardii (Florastor) 250 mg PO BID [facility] Last Admin: 09/09/17 18:37 Dose: 250 mg - Labs Labs: 09/09/17 07:46 09/09/17 07:46 PT 16.5 SECONDS (9.7-12.2) H 09/08/17 07:23 INR 1.5 09/08/17 07:23 APTT 29 SECONDS (21-34) 09/08/17 07:23 - Constitutional Appears: Well, No Acute Distress - Head Exam Head Exam: ATRAUMATIC, NORMAL INSPECTION - Eye Exam Eye Exam: EOMI, Normal appearance - ENT Exam ENT Exam: Mucous Membranes Moist - Respiratory Exam Respiratory Exam: Clear to Ausculation Bilateral, NORMAL BREATHING PATTERN. absent: Chest Wall Tenderness, Prolonged Expiratory Phase, Rhonchi, Wheezes, Respiratory Distress - Cardiovascular Exam Cardiovascular Exam: REGULAR RHYTHM, +S1, +S2. absent: Murmur - GI/Abdominal Exam GI & Abdominal Exam: Soft, Normal Bowel Sounds. absent: Distended, Firm, Guarding, Rigid, Tenderness - Exam Additional comments: s/p I & D of scrotal abscess POD #2. Packing is intact - Extremities Exam Extremities Exam: Normal Inspection. absent: Calf Tenderness, Pedal Edema - Neurological Exam Neurological Exam: Alert, Awake, Oriented x3 - Psychiatric Exam Psychiatric exam: Normal Affect - Skin Skin Exam: Normal Color Assessment and Plan (1) Scrotal abscess Assessment & Plan: Urology consult, Dr. Mundo Rush---> Help appreciated Consult infectious disease, Dr Feliz - continue abx, follow cultures S/p I & D of scrotal abscess POD #2 Diagnostics: UA: 2+ protein, 1+ glucose, 1+ blood, rbc 12, UC: Negative Blood cx negative for 24 hours HIV/hepatitis negative RPR: Nonreactive Preliminary abscess culture : Staph. Aureus, f/u sensitvity f/u HSV, FTA ABS, G/C Imaging: Testicular Ultrasound 09/07: * No intratesticular masses identified. 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 A developing left intrascrotal extratesticular abscess/ or a septic/ infectious/ inflammatory complex left hydrocele needs to be considered. Asymmetric left skin and left subcutaneous edema and thickening -affecting the left scrotal sac. The type of infection and or inflammatory etiology is unknown. A preceding bilateral epididymitis process is suspect -most notably affecting the left. Urological follow-up consultation recommended. Medications: Meropenem 500mg IV Q8H BID Vanco 1,000mg IVPB Q12H Toradol 30mg IV Q6H PRN Percocet 1 tab Q6H PRN Nystatin TOP BID Status: Acute (2) Prophylactic measure Assessment & Plan: GI not indicated SCDs Heart healthy diet All plans and management discussed with Dr. Jorgensen Status: Acute <Rudi Jorgensen H - Last Filed: 09/10/17 12:20> Objective - Vital Signs/Intake and Output Vital Signs (last 24 hours): Temp Pulse Resp BP Pulse Ox 98.3 F 75 20 117/67 100 09/10/17 00:00 09/10/17 00:00 09/10/17 00:00 09/10/17 00:00 09/10/17 00:00 Intake and Output: 09/10/17 09/10/17 06:59 18:59 Intake Total 600 500 Balance 600 500 - Medications Medications: Current Medications Meropenem 500 mg/ Sodium (Chloride) 100 mls @ 200 mls/hr IVPB Q8 [facility]IL[facility]INO PRN Reason: Protocol Last Admin: 09/10/17 05:26 Dose: 200 mls/hr Vancomycin/Sodium Chloride (Vancomycin 1 Gm/Ns 200 Ml) 1 gm in 200 mls @ 133.333 mls/hr IVPB Q8H [facility]INO PRN Reason: Protocol Stop: 09/15/17 14:31 Nystatin (Nystop Topical Powder) 1 applic TOP BID [facility] Stop: 09/21/17 13:57 Last Admin: 09/10/17 10:05 Dose: Not Given Oxycodone/Acetaminophen (Percocet 5/325 Mg Tab) 1 tab PO Q6 PRN PRN Reason: Pain, severe (8-10) Stop: 09/11/17 12:01 Last Admin: 09/09/17 14:33 Dose: 1 tab Saccharomyces Boulardii (Florastor) 250 mg PO BID [facility] Last Admin: 09/10/17 10:07 Dose: 250 mg - Labs Labs: 09/10/17 05:57 09/10/17 05:57 PT 16.5 SECONDS (9.7-12.2) H 09/08/17 07:23 INR 1.5 09/08/17 07:23 APTT 29 SECONDS (21-34) 09/08/17 07:23 Attending/Attestation - Attestation I have personally seen and examined this patient.: Yes I have fully participated in the care of the patient.: Yes I have reviewed all pertinent clinical information, including history, physical exam and plan: Yes Notes (Text): 09/10/17 12:18 Medical attending: Patient was seen and examined by me. Agree with the above note by the resident From what I understand there are plans for going back to [place] tommorow. NPO after breakfast tommorow. His wound cultures from the scotal abscess/area came back postive for MRSA. It is sensitive to both Vanocmycin as well as Clindamycin DASHA 0.25 He reports pain is controlled. He is walking around. Denied fever, denied chills. The WBC is trending downward Still pending GC / Chylmydia and FTA - ABS. Rudi Jorgensen
[2017-09-10] MEDS: Meropenem 500 MG in Sodium Chloride 0.9% 100 ML IVPB SCH (05:26)
[2017-09-10 06:00] LABS: BASO # 0.1 K/uL (0.0-0.2); BASO % 0.6 % (0.0-2.0); EOS # 0.2 K/uL (0.0-0.7); EOS % 2.3 % (0.0-4.0); LYMPH # 1.4 K/uL (1.0-4.3); LYMPH % 15.9 % (20.0-40.0); MEAN CELL VOLUME 79.3 fL (80.0-94.0); MEAN CORPUSCULAR HEMOGLOBIN 26.5 pg (27.0-31.0); MEAN CORPUSCULAR HGB CONC 33.4 g/dL (33.0-37.0); MEAN PLATELET VOLUME 7.3 fL (7.2-11.7); MONO # 0.9 K/uL (0.0-0.8); MONO % 10.1 % (0.0-10.0); NEUT # 6.4 K/uL (1.8-7.0); NEUT % 71.1 % (50.0-75.0); RBC 4.54 Mil/uL (4.40-5.90); RED CELL DISTRIBUTION WIDTH 13.2 % (11.5-14.5)
[2017-09-10 06:20] LABS: ALB/GLOB RATIO 0.8 (1.0-2.1); ALBUMIN 3.4 g/dL (3.5-5.0); ALT/SGPT 30 U/L (21-72); AST/SGOT 22 U/L (17-59); BLOOD UREA NITROGEN 17 mg/dL (9-20); CALCIUM 8.1 mg/dl (8.6-10.4); GFR AFRICAN-AMERICAN > 60; GFR NON-AFRICAN AMERICAN > 60
[2017-09-10] MEDS: Saccharomyces Boulardi 250 mg Cap PO SCH ×2 (10:07→17:28)
--- NOTE | 2017-09-10 13:42 | CP.PCM.PN ---
Subjective - Date & Time of Evaluation Date of Evaluation: 09/10/17 Time of Evaluation: 10:00 - Subjective Subjective: Patient is s/p I & D of scrotal abscess POD #2. Objective - Vital Signs/Intake and Output Vital Signs (last 24 hours): Temp Pulse Resp BP Pulse Ox 98.3 F 75 20 117/67 100 09/10/17 00:00 09/10/17 00:00 09/10/17 00:00 09/10/17 00:00 09/10/17 00:00 Intake and Output: 09/10/17 09/10/17 06:59 18:59 Intake Total 600 500 Balance 600 500 - Medications Medications: Current Medications Meropenem 500 mg/ Sodium (Chloride) 100 mls @ 200 mls/hr IVPB Q8 SILVINO PRN Reason: Protocol Last Admin: 09/10/17 05:26 Dose: 200 mls/hr Vancomycin/Sodium Chloride (Vancomycin 1 Gm/Ns 200 Ml) 1 gm in 200 mls @ 133.333 mls/hr IVPB Q8H SIL[facility]INO PRN Reason: Protocol Stop: 09/15/17 14:31 Nystatin (Nystop Topical Powder) 1 applic TOP BID [facility] Stop: 09/21/17 13:57 Last Admin: 09/10/17 10:05 Dose: Not Given Oxycodone/Acetaminophen (Percocet 5/325 Mg Tab) 1 tab PO Q6 PRN PRN Reason: Pain, severe (8-10) Stop: 09/11/17 12:01 Last Admin: 09/09/17 14:33 Dose: 1 tab Saccharomyces Boulardii (Florastor) 250 mg PO BID [facility] Last Admin: 09/10/17 10:07 Dose: 250 mg - Labs Labs: 09/10/17 05:57 09/10/17 05:57 PT 16.5 SECONDS (9.7-12.2) H 09/08/17 07:23 INR 1.5 09/08/17 07:23 APTT 29 SECONDS (21-34) 09/08/17 07:23 - Constitutional Appears: Non-toxic, Chronically Ill - Head Exam Head Exam: NORMOCEPHALIC - Eye Exam Eye Exam: PERRL - ENT Exam ENT Exam: Mucous Membranes Dry - Neck Exam Neck Exam: absent: Lymphadenopathy - Respiratory Exam Respiratory Exam: Decreased Breath Sounds - Cardiovascular Exam Cardiovascular Exam: REGULAR RHYTHM - GI/Abdominal Exam GI & Abdominal Exam: Distended, Soft - Rectal Exam Rectal Exam: Deferred - Exam Exam: Scrotal Swelling - Extremities Exam Extremities Exam: absent: Pedal Edema - Back Exam Back Exam: absent: CVA tenderness (L), CVA tenderness (R) Assessment and Plan (1) Scrotal abscess Status: Acute - Assessment and Plan (Free Text) Assessment: cont iv rx for MRSA d/c merrem add Zosyn cont vANCO
[2017-09-10] MEDS: Vancomycin 1 gm/NS 200 ml 1 GM/200 ML BAG IVPB SCH ×2 (14:23→21:33)
[2017-09-10] MEDS: Piperacill/Tazo 3.375gm in Dex 3.375 GM/50 ML BAG IVPB SCH (17:29)
[2017-09-11] MEDS: Piperacill/Tazo 3.375gm in Dex 3.375 GM/50 ML BAG IVPB SCH ×3 (00:19→17:47)
[2017-09-11 06:37] LABS: BASO # 0.1 K/uL (0.0-0.2); BASO % 0.6 % (0.0-2.0); EOS # 0.3 K/uL (0.0-0.7); EOS % 3.4 % (0.0-4.0); HEMOGLOBIN 12.5 g/dL (12.0-18.0); LYMPH # 1.5 K/uL (1.0-4.3); LYMPH % 19.1 % (20.0-40.0); MEAN CELL VOLUME 79.5 fL (80.0-94.0); MEAN CORPUSCULAR HEMOGLOBIN 26.7 pg (27.0-31.0); MEAN CORPUSCULAR HGB CONC 33.6 g/dL (33.0-37.0); MEAN PLATELET VOLUME 6.9 fL (7.2-11.7); MONO # 0.8 K/uL (0.0-0.8); MONO % 9.9 % (0.0-10.0); NEUT # 5.3 K/uL (1.8-7.0); NRBC % 0.1 % (0.0-2.0); RBC 4.67 Mil/uL (4.40-5.90); RED CELL DISTRIBUTION WIDTH 13.3 % (11.5-14.5); WHITE BLOOD COUNT 7.9 K/uL (4.8-10.8)
[2017-09-11 06:57] LABS: ALB/GLOB RATIO 0.9 (1.0-2.1); ALBUMIN 3.5 g/dL (3.5-5.0); ALT/SGPT 31 U/L (21-72); AST/SGOT 32 U/L (17-59); BLOOD UREA NITROGEN 15 mg/dL (9-20); CALCIUM 8.4 mg/dl (8.6-10.4); GFR AFRICAN-AMERICAN > 60; GFR NON-AFRICAN AMERICAN > 60
[2017-09-11] MEDS: Vancomycin 1 gm/NS 200 ml 1 GM/200 ML BAG IVPB SCH ×3 (07:13→21:46)
[2017-09-11] MEDS: Saccharomyces Boulardi 250 mg Cap PO SCH ×2 (11:00→17:48)
--- NOTE | 2017-09-11 11:40 | CP.PCM.PN ---
Subjective - Date & Time of Evaluation Date of Evaluation: 09/11/17 Time of Evaluation: 09:00 - Subjective Subjective: for OR + MRSA scrotum cont iv rx Objective - Vital Signs/Intake and Output Vital Signs (last 24 hours): Temp Pulse Resp BP Pulse Ox 98.0 F 65 20 136/84 96 09/11/17 07:16 09/11/17 07:16 09/11/17 07:16 09/11/17 07:16 09/11/17 07:16 Intake and Output: 09/11/17 09/11/17 06:59 18:59 Intake Total 590 Balance 590 - Medications Medications: Current Medications Vancomycin/Sodium Chloride (Vancomycin 1 Gm/Ns 200 Ml) 1 gm in 200 mls @ 133.333 mls/hr IVPB Q8H [facility] PRN Reason: Protocol Stop: 09/15/17 14:31 Last Admin: 09/11/17 07:13 Dose: 133.333 mls/hr Piperacillin Sod/Tazobactam Sod (Zosyn 3.375 Gm Iv Premix) 3.375 gm in 50 mls @ 100 mls/hr IVPB Q8H [facility] PRN Reason: Protocol Last Admin: 09/11/17 08:51 Dose: 100 mls/hr Nystatin (Nystop Topical Powder) 1 applic TOP BID [facility] Stop: 09/21/17 13:57 Last Admin: 09/10/17 17:29 Dose: Not Given Oxycodone/Acetaminophen (Percocet 5/325 Mg Tab) 1 tab PO Q6 PRN PRN Reason: Pain, severe (8-10) Stop: 09/11/17 12:01 Last Admin: 09/09/17 14:33 Dose: 1 tab Saccharomyces Boulardii (Florastor) 250 mg PO BID [facility] Last Admin: 09/10/17 17:28 Dose: 250 mg - Labs Labs: 09/11/17 06:32 09/11/17 06:32 PT 16.5 SECONDS (9.7-12.2) H 09/08/17 07:23 INR 1.5 09/08/17 07:23 APTT 29 SECONDS (21-34) 09/08/17 07:23 - Constitutional Appears: Well - Head Exam Head Exam: ATRAUMATIC, NORMAL INSPECTION, NORMOCEPHALIC - Eye Exam Eye Exam: EOMI, Normal appearance, PERRL Pupil Exam: NORMAL ACCOMODATION, PERRL - ENT Exam ENT Exam: Mucous Membranes Moist, Normal Exam - Neck Exam Neck Exam: Full ROM, Normal Inspection. absent: Lymphadenopathy - Respiratory Exam Respiratory Exam: Clear to Ausculation Bilateral, NORMAL BREATHING PATTERN - Cardiovascular Exam Cardiovascular Exam: REGULAR RHYTHM, +S1, +S2. absent: Murmur - GI/Abdominal Exam GI & Abdominal Exam: Soft, Normal Bowel Sounds. absent: Tenderness - Rectal Exam Rectal Exam: NORMAL INSPECTION - Exam Exam: Scrotal Swelling External exam: absent: Ecchymosis, Erythema, Lacerations, Lesions, Swelling - Extremities Exam Extremities Exam: Full ROM, Normal Capillary Refill, Normal Inspection. absent : Joint Swelling, Pedal Edema - Back Exam Back Exam: NORMAL INSPECTION - Neurological Exam Neurological Exam: Alert, Awake, CN II-XII Intact, Normal Gait, Oriented x3 - Psychiatric Exam Psychiatric exam: Normal Affect, Normal Mood - Skin Skin Exam: Dry, Intact, Normal Color, Warm Assessment and Plan (1) Scrotal abscess Status: Acute - Assessment and Plan (Free Text) Assessment: cont iv rx for now possible PO rx upon discharge
--- NOTE | 2017-09-11 15:23 | CP.PCM.PN ---
<Chani Strong - Last Filed: 09/11/17 15:20> Subjective - Date & Time of Evaluation Date of Evaluation: 09/11/17 Time of Evaluation: 15:20 - Subjective Subjective: PGY-[address] Varghese Pt was seen and examined today at bedside. Nurse reports no overnight complaints. He is going for surgery this pm for I&D of scrotal abscess. Reports no discomfort. Denies chest pain, abdominal pain, shortness of breath, nausea, vomiting, constipation, diarrhea. Objective - Vital Signs/Intake and Output Vital Signs (last 24 hours): Temp Pulse Resp BP Pulse Ox 98.0 F 65 20 136/84 96 09/11/17 07:16 09/11/17 07:16 09/11/17 07:16 09/11/17 07:16 09/11/17 07:16 Intake and Output: 09/11/17 09/11/17 06:59 18:59 Intake Total 590 Balance 590 - Medications Medications: Current Medications Vancomycin/Sodium Chloride (Vancomycin 1 Gm/Ns 200 Ml) 1 gm in 200 mls @ 133.333 mls/hr IVPB Q8H [facility] PRN Reason: Protocol Stop: 09/15/17 14:31 Last Admin: 09/11/17 14:31 Dose: 133.333 mls/hr Piperacillin Sod/Tazobactam Sod (Zosyn 3.375 Gm Iv Premix) 3.375 gm in 50 mls @ 100 mls/hr IVPB Q8H [facility] PRN Reason: Protocol Last Admin: 09/11/17 08:51 Dose: 100 mls/hr Nystatin (Nystop Topical Powder) 1 applic TOP BID [facility] Stop: 09/21/17 13:57 Last Admin: 09/11/17 11:00 Dose: Not Given Saccharomyces Boulardii (Florastor) 250 mg PO BID [facility] Last Admin: 09/11/17 11:00 Dose: 250 mg - Labs Labs: 09/11/17 06:32 09/11/17 06:32 PT 16.5 SECONDS (9.7-12.2) H 09/08/17 07:23 INR 1.5 09/08/17 07:23 APTT 29 SECONDS (21-34) 09/08/17 07:23 - Constitutional Appears: Well, No Acute Distress - Head Exam Head Exam: ATRAUMATIC, NORMAL INSPECTION, NORMOCEPHALIC - Eye Exam Eye Exam: EOMI, Normal appearance, PERRL - ENT Exam ENT Exam: Mucous Membranes Moist - Neck Exam Neck Exam: Full ROM - Respiratory Exam Respiratory Exam: Clear to Ausculation Bilateral, NORMAL BREATHING PATTERN - Cardiovascular Exam Cardiovascular Exam: REGULAR RHYTHM, +S1, +S2 - GI/Abdominal Exam GI & Abdominal Exam: Soft, Normal Bowel Sounds. absent: Tenderness - Exam Additional comments: scrotum dressed, unable to visualize. no obvious bleed, redness, irritation. - Extremities Exam Extremities Exam: Full ROM, Normal Capillary Refill, Normal Inspection Additional comments: pedal pulses present - Neurological Exam Neurological Exam: Alert, Awake, CN II-XII Intact, Normal Gait, Oriented x3 - Psychiatric Exam Psychiatric exam: Normal Affect, Normal Mood - Skin Skin Exam: Dry, Intact, Normal Color, Warm Assessment and Plan - Assessment and Plan (Free Text) Plan: (1) Scrotal abscess Assessment & Plan: Urology consulted, Dr. Rush - help appreciated ID consulted, Dr. Feliz - help appreciated -continue IV abx Vanc 1g in 200mls @ 133.333 mls/hr ivpb q8h Zosyn 3.375gm in 50mls @100 mls/hr ivpb q8h Vanc trough ordered for 08/13 1440. Cultures grew back MRSA. Meropenem stopped Nystatin topical bid s/p I&D of scrotal abscess POD#3 and again today Imaging: Testicular Ultrasound 09/07: * No intratesticular masses identified. 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 A developing left intrascrotal extratesticular abscess/ or a septic/ infectious/ inflammatory complex left hydrocele needs to be considered. Asymmetric left skin and left subcutaneous edema and thickening -affecting the left scrotal sac. The type of infection and or inflammatory etiology is unknown. A preceding bilateral epididymitis process is suspect -most notably affecting the left. Urological follow-up consultation recommended. Status: Acute (2) Prophylactic measure Assessment & Plan: GI not indicated SCDs Florastor Heart healthy diet Chani Strong PGY-1. Plans discussed with Dr. Varghese. <Ambar Varghese - Last Filed: 09/13/17 16:40> Objective - Vital Signs/Intake and Output Vital Signs (last 24 hours): Temp Pulse Resp BP Pulse Ox 98 F 71 20 125/72 98 09/11/17 15:30 09/11/17 15:30 09/11/17 15:30 09/11/17 15:30 09/11/17 15:30 Intake and Output: 09/11/17 09/12/17 18:59 06:59 Intake Total 550 Balance 550 - Medications Medications: Current Medications Vancomycin/Sodium Chloride (Vancomycin 1 Gm/Ns 200 Ml) 1 gm in 200 mls @ 133.333 mls/hr IVPB Q8H [facility] PRN Reason: Protocol Stop: 09/15/17 14:31 Last Admin: 09/11/17 14:31 Dose: 133.333 mls/hr Piperacillin Sod/Tazobactam Sod (Zosyn 3.375 Gm Iv Premix) 3.375 gm in 50 mls @ 100 mls/hr IVPB Q8H [facility] PRN Reason: Protocol Last Admin: 09/11/17 17:47 Dose: 100 mls/hr Nystatin (Nystop Topical Powder) 1 applic TOP BID [facility] Stop: 09/21/17 13:57 Last Admin: 09/11/17 17:48 Dose: Not Given Saccharomyces Boulardii (Florastor) 250 mg PO BID [facility] Last Admin: 09/11/17 17:48 Dose: 250 mg - Labs Labs: 09/11/17 06:32 09/11/17 06:32 PT 16.5 SECONDS (9.7-12.2) H 09/08/17 07:23 INR 1.5 09/08/17 07:23 APTT 29 SECONDS (21-34) 09/08/17 07:23 Attending/Attestation - Attestation I have personally seen and examined this patient.: Yes I have fully participated in the care of the patient.: Yes I have reviewed all pertinent clinical information, including history, physical exam and plan: Yes Notes (Text): Patient was seen and examined by me with the resident. His scrotal wound is dressing is on. He is going to [place] .Follow urologist continue zosyn and vancomycin Assessment and the plan discussed with the resident and I agree with the resident
[2017-09-11] MEDS ORDERED: Midazolam 2 MG/2 ML VIAL ONE (16:11)
[2017-09-11] MEDS ORDERED: Propofol 10 mg/ml Inj (20 ML) ONE (16:14)
[2017-09-11] MEDS ORDERED: HYDROmorphone 0.5 mg/0.5 ml ISec IVP PRN (16:18)
[2017-09-12] MEDS: Piperacill/Tazo 3.375gm in Dex 3.375 GM/50 ML BAG IVPB SCH ×3 (00:04→16:20)
[2017-09-12] MEDS: Vancomycin 1 gm/NS 200 ml 1 GM/200 ML BAG IVPB SCH ×2 (06:20→15:56)
[2017-09-12 06:39] LABS: BASO # 0.1 K/uL (0.0-0.2); BASO % 0.7 % (0.0-2.0); EOS # 0.3 K/uL (0.0-0.7); EOS % 3.6 % (0.0-4.0); HEMOGLOBIN 12.1 g/dL (12.0-18.0); LYMPH # 1.6 K/uL (1.0-4.3); LYMPH % 17.6 % (20.0-40.0); MEAN CELL VOLUME 78.7 fL (80.0-94.0); MEAN CORPUSCULAR HEMOGLOBIN 26.2 pg (27.0-31.0); MEAN CORPUSCULAR HGB CONC 33.3 g/dL (33.0-37.0); MEAN PLATELET VOLUME 6.8 fL (7.2-11.7); MONO % 11.1 % (0.0-10.0); NEUT # 6.3 K/uL (1.8-7.0); RBC 4.62 Mil/uL (4.40-5.90); RED CELL DISTRIBUTION WIDTH 13.6 % (11.5-14.5); WHITE BLOOD COUNT 9.3 K/uL (4.8-10.8)
[2017-09-12 06:59] LABS: ALB/GLOB RATIO 0.9 (1.0-2.1); ALBUMIN 3.5 g/dL (3.5-5.0); ALT/SGPT 31 U/L (21-72); AST/SGOT 44 U/L (17-59); BLOOD UREA NITROGEN 15 mg/dL (9-20); CALCIUM 8.5 mg/dl (8.6-10.4); GFR AFRICAN-AMERICAN > 60; GFR NON-AFRICAN AMERICAN > 60
--- NOTE | 2017-09-12 08:02 | CP.PCM.PN ---
Subjective - Date & Time of Evaluation Date of Evaluation: 09/12/17 Time of Evaluation: 08:00 - Subjective Subjective: PGY-[address] Varghese Pt was seen and examined today at bedside. Nurse reports no overnight complaints. He is POD#1 of scrotal abscess I&D. Reports no discomfort. Denies chest pain, abdominal pain, shortness of breath, nausea, vomiting, constipation , diarrhea. Objective - Vital Signs/Intake and Output Vital Signs (last 24 hours): Temp Pulse Resp BP Pulse Ox 97.7 F 67 20 126/73 95 09/12/17 07:00 09/12/17 07:00 09/12/17 07:00 09/12/17 07:00 09/12/17 07:00 Intake and Output: 09/12/17 09/12/17 06:59 18:59 Intake Total 750 Balance 750 - Medications Medications: Current Medications Vancomycin/Sodium Chloride (Vancomycin 1 Gm/Ns 200 Ml) 1 gm in 200 mls @ 133.333 mls/hr IVPB Q8H SILVINO PRN Reason: Protocol Stop: 09/15/17 14:31 Last Admin: 09/12/17 06:20 Dose: 133.333 mls/hr Piperacillin Sod/Tazobactam Sod (Zosyn 3.375 Gm Iv Premix) 3.375 gm in 50 mls @ 100 mls/hr IVPB Q8H SILVINO PRN Reason: Protocol Last Admin: 09/12/17 00:04 Dose: 100 mls/hr Nystatin (Nystop Topical Powder) 1 applic TOP BID [facility] Stop: 09/21/17 13:57 Last Admin: 09/11/17 17:48 Dose: Not Given Saccharomyces Boulardii (Florastor) 250 mg PO BID [facility] Last Admin: 09/11/17 17:48 Dose: 250 mg - Labs Labs: 09/12/17 06:29 09/12/17 06:29 PT 16.5 SECONDS (9.7-12.2) H 09/08/17 07:23 INR 1.5 09/08/17 07:23 APTT 29 SECONDS (21-34) 09/08/17 07:23 - Constitutional Appears: Well, No Acute Distress - Head Exam Head Exam: ATRAUMATIC, NORMAL INSPECTION, NORMOCEPHALIC - Eye Exam Eye Exam: EOMI, Normal appearance, PERRL - ENT Exam ENT Exam: Mucous Membranes Moist, Normal Exam - Respiratory Exam Respiratory Exam: Clear to Ausculation Bilateral, NORMAL BREATHING PATTERN - Cardiovascular Exam Cardiovascular Exam: REGULAR RHYTHM, +S1, +S2. absent: Murmur - GI/Abdominal Exam GI & Abdominal Exam: Soft, Normal Bowel Sounds. absent: Tenderness - Exam Additional comments: dressings from surgery clean, dry, intact. being held in scrotal sling. - Extremities Exam Extremities Exam: Full ROM, Normal Capillary Refill, Normal Inspection. absent : Joint Swelling, Pedal Edema - Neurological Exam Neurological Exam: Alert, Awake, CN II-XII Intact, Normal Gait, Oriented x3 - Psychiatric Exam Psychiatric exam: Normal Affect, Normal Mood - Skin Skin Exam: Dry, Intact, Normal Color, Warm Assessment and Plan - Assessment and Plan (Free Text) Plan: (1) Scrotal abscess Assessment & Plan: Urology consulted, Dr. Rush - help appreciated ID consulted, Dr. Feliz - help appreciated -continue IV abx Vanc 1g in 200mls @ 133.333 mls/hr ivpb q8h Zosyn 3.375gm in 50mls @100 mls/hr ivpb q8h -per Dr. Feliz, patient needs to remain in hospital on IV abx due to resistance and infection location, the combination of which can lead to sepsis. -will switch to po at earliest possibility for discharge. Vanc trough ordered for 08/13 1440. Cultures grew back MRSA. Meropenem stopped Nystatin topical bid s/p I&D of scrotal abscess POD#1 Imaging: Testicular Ultrasound 09/07: * No intratesticular masses identified. 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 A developing left intrascrotal extratesticular abscess/ or a septic/ infectious/ inflammatory complex left hydrocele needs to be considered. Asymmetric left skin and left subcutaneous edema and thickening -affecting the left scrotal sac. The type of infection and or inflammatory etiology is unknown. A preceding bilateral epididymitis process is suspect -most notably affecting the left. Urological follow-up consultation recommended. Status: Acute (2) Prophylactic measure Assessment & Plan: GI not indicated SCDs Florastor Heart healthy diet Chani Strong PGY-1. Plans discussed with Dr. Varghese.
[2017-09-12] MEDS: Saccharomyces Boulardi 250 mg Cap PO SCH (09:34)
--- NOTE | 2017-09-12 13:03 | CP.PCM.PN ---
Subjective - Date & Time of Evaluation Date of Evaluation: 09/12/17 Time of Evaluation: 08:00 - Subjective Subjective: discussed on rounds cultures reviewed d/c on PO rx when cleared by with short intervval follow up in clinic Objective - Vital Signs/Intake and Output Vital Signs (last 24 hours): Temp Pulse Resp BP Pulse Ox 97.7 F 67 20 126/73 95 09/12/17 07:00 09/12/17 07:00 09/12/17 07:00 09/12/17 07:00 09/12/17 07:00 Intake and Output: 09/12/17 09/12/17 06:59 18:59 Intake Total 750 Balance 750 - Medications Medications: Current Medications Vancomycin/Sodium Chloride (Vancomycin 1 Gm/Ns 200 Ml) 1 gm in 200 mls @ 133.333 mls/hr IVPB Q8H SILVINO PRN Reason: Protocol Stop: 09/15/17 14:31 Last Admin: 09/12/17 06:20 Dose: 133.333 mls/hr Piperacillin Sod/Tazobactam Sod (Zosyn 3.375 Gm Iv Premix) 3.375 gm in 50 mls @ 100 mls/hr IVPB Q8H SILVINO PRN Reason: Protocol Last Admin: 09/12/17 08:51 Dose: 100 mls/hr Nystatin (Nystop Topical Powder) 1 applic TOP BID [facility] Stop: 09/21/17 13:57 Last Admin: 09/12/17 09:35 Dose: Not Given Saccharomyces Boulardii (Florastor) 250 mg PO BID [facility] Last Admin: 09/12/17 09:34 Dose: 250 mg - Labs Labs: 09/12/17 06:29 09/12/17 06:29 PT 16.5 SECONDS (9.7-12.2) H 09/08/17 07:23 INR 1.5 09/08/17 07:23 APTT 29 SECONDS (21-34) 09/08/17 07:23 Assessment and Plan (1) Scrotal abscess Status: Acute
[2017-09-12 16:35] VITALS: BP 130/88; PULSE 72; TEMP 98; O2SAT 97
--- NOTE | 2017-09-12 17:38 | CP.PCM.DIS ---
Provider - Provider Date of Admission: 09/07/17 10:37 Attending physician: Jose Fitzgerald MD Time Spent in preparation of Discharge (in minutes): 60 Hospital Course - Lab Results Lab Results: Micro Results 09/07/17 10:54 Blood Blood Culture - Final NO GROWTH AFTER 5 DAYS 09/07/17 10:54 Blood Gram Stain - Final TEST NOT PERFORMED 09/07/17 10:54 Blood Blood Culture - Final NO GROWTH AFTER 5 DAYS 09/07/17 10:54 Blood Gram Stain - Final TEST NOT PERFORMED 09/08/17 Unknown Abscess - Scrotum Gram Stain - Final 09/08/17 Unknown Abscess - Scrotum Wound Culture - Final Methicillin Resistant S Aureus 09/08/17 Unknown Abscess - Scrotum Gram Stain - Final 09/08/17 Unknown Abscess - Scrotum Wound Culture - Final Methicillin Resistant S Aureus 09/07/17 08:52 Urine Urine Culture - Final No Growth (<1,000 CFU/ML) Most Recent Lab Values WBC 9.3 K/uL (4.8-10.8) 09/12/17 06:29 RBC 4.62 Mil/uL (4.40-5.90) 09/12/17 06:29 Hgb 12.1 g/dL (12.0-18.0) 09/12/17 06:29 Hct 36.4 % (35.0-51.0) 09/12/17 06:29 MCV 78.7 fL (80.0-94.0) L 09/12/17 06:29 MCH 26.2 pg (27.0-31.0) L 09/12/17 06:29 MCHC 33.3 g/dL (33.0-37.0) 09/12/17 06:29 RDW 13.6 % (11.5-14.5) 09/12/17 06: Plt Count 353 K/uL (130-400) 09/12/17 06:29 MPV 6.8 fL (7.2-11.7) L 09/12/17 06:29 Neut % (Auto) 67.0 % (50.0-75.0) 09/12/17 06: Lymph % (Auto) 17.6 % (20.0-40.0) L 09/12/17 06:29 Maries % (Auto) 11.1 % (0.0-10.0) H 09/12/17 06:29 Eos % (Auto) 3.6 % (0.0-4.0) 09/12/17 06:29 Baso % (Auto) 0.7 % (0.0-2.0) 09/12/17 06:29 Neut # (Auto) 6.3 K/uL (1.8-7.0) 09/12/17 06:29 Lymph # (Auto) 1.6 K/uL (1.0-4.3) 09/12/17 06:29 Maries # (Auto) 1.0 K/uL (0.0-0.8) H 09/12/17 06:29 Eos # (Auto) 0.3 K/uL (0.0-0.7) 09/12/17 06:29 Baso # (Auto) 0.1 K/uL (0.0-0.2) 09/12/17 06:29 Neutrophils % (Manual) 84 % (50-75) H 09/09/17 07:46 Band Neutrophils % 1 % (0-2) 09/09/17 07:46 Lymphocytes % (Manual) 7 % (20-40) L 09/09/17 07:46 Monocytes % (Manual) 8 % (0-10) 09/09/17 07:46 Toxic Granulation Present 09/09/17 07:46 Platelet Estimate Normal (NORMAL) 09/09/17 07:46 Large Platelets Present 09/09/17 07:46 RBC Morphology Normal 09/08/17 07:23 Polychromasia Slight 09/09/17 07:46 Hypochromasia (manual) Slight 09/09/17 07:46 Anisocytosis (manual) Slight 09/09/17 07:46 PT 16.5 SECONDS (9.7-12.2) H 09/08/17 07:23 INR 1.5 09/08/17 07:23 APTT 29 SECONDS (21-34) 09/08/17 07:23 Sodium 140 mmol/L (132-148) 09/12/17 06:29 Potassium 4.1 mmol/L (3.6-5.2) 09/12/17 06:29 Chloride 102 mmol/L (98-107) 09/12/17 06:29 Carbon Dioxide 29 mmol/L (22-30) 09/12/17 06:29 Anion Gap 13 (10-20) 09/12/17 06:29 BUN 15 mg/dL (9-20) 09/12/17 06:29 Creatinine 1.0 mg/dL (0.8-1.5) 09/12/17 06:29 Est GFR ( Amer) > 60 09/12/17 06:29 Est GFR (Non-Af Amer) > 60 09/12/17 06:29 POC Glucose (mg/dL) 111 mg/dL (65-110) H 09/10/17 21:13 Random Glucose 110 mg/dL (75-110) 09/12/17 06:29 Hemoglobin A1c 5.5 % (4.2-6.5) 09/09/17 07:46 Lactic Acid 1.8 mmol/L (0.7-2.1) 09/07/17 08:31 Calcium 8.5 mg/dl (8.6-10.4) L 09/12/17 06:29 Phosphorus 3.9 mg/dL (2.5-4.5) 09/11/17 06:32 Magnesium 2.2 mg/dL (1.6-2.3) 09/11/17 06:32 Total Bilirubin 0.9 mg/dL (0.2-1.3) 09/12/17 06:29 AST 44 U/L (17-59) 09/12/17 06:29 ALT 31 U/L (21-72) 09/12/17 06:29 Alkaline Phosphatase 74 U/L (38-126) 09/12/17 06:29 Total Protein 7.5 g/dL (6.3-8.3) 09/12/17 06:29 Albumin 3.5 g/dL (3.5-5.0) 09/12/17 06:29 Globulin 4.0 gm/dL (2.2-3.9) H 09/12/17 06:29 Albumin/Globulin Ratio 0.9 (1.0-2.1) L 09/12/17 06:29 Lipase 23 U/L (23-300) 09/07/17 08:31 Urine Color Yellow (YELLOW) 09/07/17 08:52 Urine Clarity Clear (Clear) 09/07/17 08:52 Urine pH 7.0 (5.0-8.0) 09/07/17 08:52 Ur Specific Wheeler 1.021 (1.003-1.030) 09/07/17 08:52 Urine Protein 2+ mg/dL (NEGATIVE) H 09/07/17 08:52 Urine Glucose (UA) 1+ mg/dL (Normal) H 09/07/17 08:52 Urine Ketones Trace mg/dL (NEGATIVE) 09/07/17 08:52 Urine Blood 1+ (NEGATIVE) H 09/07/17 08:52 Urine Nitrate Negative (NEGATIVE) 09/07/17 08:52 Urine Bilirubin Negative (NEGATIVE) 09/07/17 08:52 Urine Urobilinogen 2.0 mg/dL (0.2-1.0) 09/07/17 08:52 Ur Leukocyte Esterase Neg Curt/uL (Negative) 09/07/17 08:52 Urine WBC (Auto) 2 /hpf (0-5) 09/07/17 08:52 Urine RBC (Auto) 12 /hpf (0-3) H 09/07/17 08:52 Vancomycin Trough 11.4 ug/mL (5.0-10.0) H 09/12/17 13:58 RPR Nonreactive (NONREACTIVE) 09/08/17 11:09 T.pallidum Ab (FTA-ABS) Nonreactive (Nonreactive) 09/08/17 11:09 Hepatitis A IgM Ab Negative (NEGATIVE) 09/08/17 07:23 Hep Bs Antigen Negative (NEGATIVE) 09/08/17 07:23 Hep B Core IgM Ab Negative (NEGATIVE) 09/08/17 07:23 Hepatitis C Antibody Negative (NEGATIVE) 09/08/17 07:23 HIV 1&2 Antibody Screen Negative (NEGATIVE) 09/08/17 07:23 - Hospital Course Hospital Course: Mr Mathis is a 47 year old male with no past medical history (due to not seeing a PMD) who presents to [facility] because he stated he had a sudden onset of scrotal pain and swelling which began yesterday morning. He said this sudden pain and swelling was not preceded by erythema, urinary symptoms, fevers, or genital pain. The nature of his complain is completely sudden in onset. 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 He said since the swelling began, it has become progressively worse. The swelling and pain is worse on the left scrotum. Mild pain on urination. Admits to suprapubic pain. He had a temperate of 100.3 yesterday for which he took a motrin which resolved the high temp. Denies abnormal bowel movements, abdominal pain, chest pain, nausea, vomiting. Patient came into ED complaining of scrotal pain. Examined by ultrasound, showing left extratesticular abscess. ID and surgery were consulted and patient had first I&D surgery on the 09/08, and a second followup surgery on 09/11. Was empirically started on meropenem, then switched when cultures came back as MRSA sensitive to vanc/zosyn. Nystatin was also applied topically to reduce likelihood of superficial infection. Due to patient's condition and eagerness to return to work, antibiotics were changed to Clindamycin by mouth for discharge with insistence of followup within [address] Rush. Patient was cleared for discharger per Victor Manuel Johnson, and Tray. Patient should resume all home medication as well as start the following: Clindamycin 300mg by mouth 4 times a day Patient is stable for discharge home as per Victor Manuel Johnson, and Tray. Patient is to follow up with Dr. Rush within the next 7 days. Patient is being discharged with the following new medication: Clindamycin 300mg by mouth 4 times a day Patient is to resume all other home medications. Patient should return to the ED if symptoms reoccur or worsen. This has been explained to the patient and his son who understands and agrees. This is a summary of the patient's hospital course. Please refer to the EMR for more detailed information. - Date & Time of H&P Date of H&P: 09/12/17 Time of H&P: 17:07 Discharge Exam - Head Exam Head Exam: ATRAUMATIC, NORMAL INSPECTION, NORMOCEPHALIC - Eye Exam Eye Exam: EOMI, Normal appearance, PERRL - ENT Exam ENT Exam: Mucous Membranes Moist, Normal Exam - Respiratory Exam Respiratory Exam: Clear to PA & Lateral, NORMAL BREATHING PATTERN, UNREMARKABLE - Cardiovascular Exam Cardiovascular Exam: REGULAR RHYTHM, +S1, +S2. absent: Systolic Murmur - GI/Abdominal Exam GI & Abdominal Exam: Normal Bowel Sounds, Soft. absent: Rebound, Tenderness - Exam Exam: Scrotal Swelling Additional comments: scrotum in dressing sling - Extremities Exam Extremities exam: full ROM, normal capillary refill, pedal pulses present - Neurological Exam Neurological exam: Alert, CN II-XII Intact, Normal Gait, Oriented x3, Reflexes Normal - Psychiatric Exam Psychiatric exam: Normal Affect, Normal Mood - Skin Skin Exam: Dry, Intact, Normal Color, Warm Discharge Plan - Discharge Medications Prescriptions: Clindamycin [Cleocin] 300 mg PO Q6 #30 cap - Follow Up Plan Condition: FAIR Disposition: HOME/ ROUTINE Instructions: Debridement of a Wound or Burn (DC), Abscess (GEN) Additional Instructions: Patient was cleared for discharger per Victor Manuel Johnson, and Tray. Patient should resume all home medication as well as start the following: Clindamycin 300mg by mouth 4 times a day Patient is stable for discharge home as per Victor Manuel Johnson, and Tray. Patient is to follow up with Dr. Rush within the next 7 days. Patient is being discharged with the following new medication: Clindamycin 300mg by mouth 4 times a day Patient is to resume all other home medications. Patient should return to the ED if symptoms reoccur or worsen. This has been explained to the patient and his son who understands and agrees. Referrals: Graeme Feliz MD [Staff Provider] - Toy Rush MD [Staff Provider] -
--- NOTE | 2017-09-14 12:08 | PN ---
DATE: 09/12/2017 See the previously dictated consult notes from 09/07/2017. See the operative note from 09/08/2017, and see the operative note from 09/11/2017. The patient is currently resting comfortably in his gurney, in a bed. He was much better than we initially met him. At this point, he is ready to go home. He actually lives with his . See the plans listed below. PAST MEDICAL AND SURGICAL HISTORY: No other changes. PHYSICAL EXAMINATION: I removed the packing. Inspected, it looks much better. I replaced the packing very gently, not deep. Overall, the patient tolerated this well at the bedside. DIAGNOSIS: Scrotal wall abscess. Much deeper than initially appreciated. The plan is as follows at this point: Local wound care. I explained to the patient in great detail whenever they shower at home to take all the bandages off, let the water run in. I explained even with a water bottle to irrigate with a hole in the water bottle technique. I explained ____ just put in the shower head in the area and then afterwards drying it well and not allowing any moist to accumulate. They are going to come to my office on 09/14/2017 or 09/15/2017 depending on their schedule and then further plans will follow. I will be in close contact with the patient to get him on antibiotics as ordered from Infectious Disease and then Urology montero, we are going to follow the patient closely. Further plans will follow. The patient is given instructions. I am going to mention that all along the patient's and the patient call me directly to my cell phone and they know how to reach me. Further plans will follow. Wale Rush MD
--- NOTE | 2017-09-14 12:12 | PN ---
DATE: 09/13/2017 See many previously dictated notes in the chart. I spoke with the patient earlier. Today is 09/13/2017. The patient has been discharged on 09/12/2017. The patient called me by cell phone. He is doing well. We discussed various questions. We discussed wound care. Overall, he is doing well. I just want to put a note to the chart on this patient and I explained further wound care. I explained if there are further questions that they will have to come back to the emergency room. If not, we are going to see him in the office. Further plans will follow. When I spoke with the patient today, 09/13/2017, he is overall doing well. I spoke to the patient and . Wale Rush MD
--- NOTE | 2017-09-15 02:52 | OP ---
PROCEDURE DATE: 09/08/2017 UROLOGY OPERATIVE REPORT SURGEON: Wale Rush MD PREOPERATIVE DIAGNOSIS: Abscess formation in the left scrotum. POSTOPERATIVE DIAGNOSIS: Abscess formation in the left scrotum with extension down towards the perineal region. PROCEDURE: Incision and drainage of abscess #4. BLOOD LOSS: Less than 10 mL. SPECIMEN SENT OUT: Purulent material. UROLOGY OPERATIVE FINDINGS: There is pus coming out. Multiple pictures were taken and saved. Of this pus pocket, we have made a nice cruciate incision and drained purulent material. There is not a tremendous foul odor to that (the patient has been on antibiotics). No other significant findings other than the fact that it does not appear to be deep and it is not penetrating down to the testicle. There is a separate fascia and we are far away from this as well. INDICATIONS: See history and physical on consultation. The patient was seen yesterday after being admitted with the pus-filled abscess formation. We tried treating with antibiotics but the patient says it is still hurting him too much and it looks on physical exam to be average, but slightly worse. There is no evidence of any closure. There is no evidence of necrotic material, but given his history and his pain and he is not responding, I did discuss with roughly for waiting a little longer. The patient said that it is just too uncomfortable and too painful and he asked me what else we could do. I explained to him that we can make an incision and drainage and then we will pack the wound but this will require more extensive in hospital care. See the addendum at the end of this note. DESCRIPTION OF PROCEDURE: After obtaining informed consent, the patient was placed on the table. Routine monitor was placed. Time-out was called to confirm the patient and positioning. We adjusted our table positioning in a relative frog-leg like fashion to allow us access to the scrotal region and the perineum. We proceeded in the following fashion: We made a cruciate incision and we actually extended it a little further below in the perineum, what we observed is purulent material. I actually took some pictures of this material. We sent this all for cultures (there may be negative cultures, the fact is that he has been on antibiotics). We now cleaned up the wound gently, carefully with irrigation and just with finger inspection. Again it is not involving the scrotum, but it goes deep in the perineum. I do want to mention that we also did a rectal exam. There does not to be any rectal involvement and this just appeared apparently just related to the infected hair follicle. We irrigated the wound nicely and gently. It is actually much deeper and involving much greater amount of material than is on the surface. After irrigating, we then placed a Betadine soaked Kerlix. In fact, we were able to insert two Kerlix between where it tracked up in the upper groin and all the way down into the perineum. It was much more extensive than was initially seen on the surface. On top of Kerlix, we applied some other Kerlix for compression. We provided a scrotal support and some tape, which were secured in place. Overall, the patient tolerated it without any complications. ADDENDUM We are going to observe the patient over the weekend, continue providing antibiotics and then we are going to actually bring the patient back to the OR and hopefully we would be able to remove two Kerlix at the bedside. We will provide a little anesthesia and sedation at that point, and then further plans will follow. Wale Rush MD
--- NOTE | 2017-09-15 03:15 | OP ---
PROCEDURE DATE: 09/11/2017 PREOPERATIVE DIAGNOSIS: Scrotal wall abscess. POSTOPERATIVE DIAGNOSIS: Scrotal wall abscess. PROCEDURE: Removal of previous packing, wound debridement as needed, and irrigation and clean up of wound and placement of packing. COMPLICATIONS: There were no complications. ESTIMATED BLOOD LOSS: Less than 10 mL. OPERATIVE FINDINGS: The wound looks so much better. It is healing well. We were able to irrigate. We did not, in fact, even need to revive any tissue. We were able to remove the packing intact. No other significant abnormal findings. I do want to mention there is some penile edema at this point, but otherwise unremarkable. DESCRIPTION OF PROCEDURE: After obtaining informed consent, the patient was placed on the table. Routine monitor was placed. Time-out was called to confirm patient and positioning. What we did is we frog-legged the patient and secured in a sling so that we were able to get good access to the perineum. We removed the old packing after sedation anesthesia. Time-out was called to confirm patient and positioning, etc. Anesthesia provided. We removed the old packing. We then irrigated the wound copiously. Once we did this, we inspected carefully and we placed at this time an iodoform packing much less than the previous one, although we could probably put further packing in. In fact, we did do a little Kerlix just to provide further separation so that the inside will heal inside out. We applied dry sterile dressing. The patient tolerated the procedure without complication. We had the packing in there, the iodoform packing. Despite the odds, the iodoform offset easily from the perineum and up. Overall, this patient tolerated the procedure well without complication. Wale Rush MD
--- NOTE | 2017-09-15 07:00 | CON ---
DATE: 09/07/2017 REASON FOR CONSULTATION: Scrotal wall abscess. HISTORY OF PRESENT ILLNESS: Mr. Clarence Mathis is a pleasant 47-year-old gentleman who reports a couple of days ago he had shaved his "private area." He shaved his groin and scrotum. Now, he notes the presence of irritated, infected skin wall. Urology has been consulted. Further recommendations will be planned and listed below. PAST MEDICAL HISTORY: As listed below in the chart. PAST SURGICAL HISTORY: As listed below in the chart. No history of an NC or CVA. SOCIAL HISTORY: ETOH with his . He works. Otherwise unremarkable. REVIEW OF SYSTEMS: As listed above. Noncontributory with no weight loss, chest pain, or shortness of breath. Significantly, he reports he is not having in the axilla or anywhere else in the groin and anywhere that he had follicles. He reports this is the first time something like this has happened. See below. PHYSICAL EXAMINATION: GENERAL: He is actually somewhat uncomfortable. He is resting in the gurney. VITAL SIGNS: Within normal limits. LUNGS: Clear. HEART: Normal S1 and S2. ABDOMEN: Overall soft. It is not grossly distended. He has a normal discharge. In his left hemiscrotum on the scrotal wall, it is edematous and erythematous. It looks like a little along the left scrotal wall. There is no areas of necrosis. There is no crepitus. This extended down towards almost the peroneal region. Rectal exam was deferred for now. See below. LABS: See chart. White count noted. BUN and creatinine noted. DIAGNOSES: An infected scrotal wall, maybe the beginning of an abscess formation. ASSESSMENT AND PLAN: In summary, a very pleasant gentleman who is 47-year-old reasonably healthy. It appears that this is a secondary to shaving, perhaps it is an infected hair follicle. I explained to the patient that he may require drainage very often with an abscess, we do; however, we can observe him at first to see if he responds bring him to the OR, but I still want much more complicated in the events that we will make a cruciate excision and then there is a lot of wound healing and drainage. On the other hand, the concerns is sepsis. Sometimes, therefore he will require surgical intervention. I explained at length we are going to observe the patient for a day. There is no signs of necrosis. There is no signs of ____ gangrene. In this particular patient in this setting, I think it is appropriate if we can try to monitor for a day and if he does not respond well, we will bring him to the OR and drain him over the weekend. PLAN: 1. Antibiotic treatment. 2. Analgesics as required and then further plans will follow. Thank you for the urology consult. Wale Rush MD
== END 2017-09-12 17:06 | disposition home or self-care (01) | DRG 350 ==
LOC: C.ER 08:01 → C.9E 10:37 → C.3T 11:15
PROVIDERS: ADMIT Family Medicine; ATTEND Family Medicine
PROC: 0V950ZZ Drainage of Scrotum, Open Approach (ICD-10-PCS; principal; 2017-09-08 12:45)
PROC: 0V950ZZ Drainage of Scrotum, Open Approach (ICD-10-PCS; 2017-09-11)
DX: N49.2 Inflammatory disorders of scrotum (principal); N45.1 Epididymitis; F17.210 Nicotine dependence, cigarettes, uncomplicated; D72.829 Elevated white blood cell count, unspecified; N48.89 Other specified disorders of penis

== ENCOUNTER 2017-12-16 21:47 | Emergency (ER) | payer OTHER ==
[2017-12-16 21:47] VITALS: BMI 30.5
[2017-12-16 22:00] VITALS: RESP 16
[2017-12-16] MEDS ORDERED: Magnesium Citrate Oral SOL (300 ml) PO ONE (22:51)
--- NOTE | 2017-12-16 22:53 | C.PDOC ---
History Of Present Illness 47 year old male presents to ED with complaints of epigastric colic discomfort. States he had soup for dinner, sandwich for lunch, and had rice and pasta for dinner last night. Patient eats lots of junk food at work. Otherwise he denies any vomiting, diarrhea, or nausea. Time Seen by Provider: 12/16/17 22:17 Chief Complaint (Nursing): Abdominal Pain History Per: Patient History/Exam Limitations: no limitations Onset/Duration Of Symptoms: Days Current Symptoms Are (Timing): Still Present Past Medical History Reviewed: Historical Data, Nursing Documentation, Vital Signs Vital Signs: Last Vital Signs Temp 98.3 F 12/16/17 21:58 Pulse 61 12/16/17 21:58 Resp 16 12/16/17 21:58 BP 132/86 12/16/17 21:58 Pulse Ox 100 12/16/17 21:58 - [facility] Procedures DRAINAGE OF SCROTUM, OPEN APPROACH (09/07/17) Family History: States: No Known Family Hx - Social History Hx Tobacco Use: No Hx Alcohol Use: Yes Hx Substance Use: No - Immunization History Hx Tetanus Toxoid Vaccination: No Hx Influenza Vaccination: No Hx Pneumococcal Vaccination: No Review Of Systems Except As Marked, All Systems Reviewed And Found Negative. Constitutional: Negative for: Fever, Chills Gastrointestinal: Positive for: Abdominal Pain (epigastric colic). Negative for: Nausea, Vomiting, Diarrhea ( ) Neurological: Negative for: Weakness, Numbness Physical Exam - Physical Exam Appears: Non-toxic, No Acute Distress Skin: Warm, Dry Head: Atraumatic, Normacephalic Eye(s): bilateral: Normal Inspection Chest: Symmetrical Cardiovascular: Rhythm Regular, No Murmur Respiratory: Normal Breath Sounds, No Rales, No Rhonchi, No Wheezing Gastrointestinal/Abdominal: Other (Tympanic on R side and epigastrium; Dull on L LQ; Negative Moran's; Negative McBurney's) Neurological/Psych: Oriented x3, Normal Speech ED Course And Treatment O2 Sat by Pulse Oximetry: 100 (RA) Pulse Ox Interpretation: Normal Medical Decision Making Medical Decision Making: Impression: Epigastric colic Plan: --Magnesium Citrate colicky epigastric discomfort neg Moran's diet of bread, pasta, rice chronic constipation LOW susp of AP Trial laxative and re-eval in AM PRn Disposition Doctor Will See Patient In The: Office Counseled Patient/Family Regarding: Studies Performed, Diagnosis - Disposition Referrals: [facility] [Outside] [email or web address] [facility] [place] [Outside] [facility] [Outside] [facility] [Outside] Disposition: HOME/ ROUTINE Disposition Time: 22:52 Condition: GOOD Additional Instructions: drink a laxative now (entire bottle of Mag Citrate) and re-evaluate your abdominal discomfort after evacuating 2-3 times Return to ED in 6-8 hours if symptoms not significantly improved w treatment above Diet and exercise change as educated 7 fresh fruits and vegetables a day drink more water loose weight outpatient Clinic follow-up as needed. Instructions: Constipation, Adult (DC), Gas and Bloating (ED) Forms: [email or web address] ([place]) - Clinical Impression Clinical Impression: Abdominal colic - Scribe Statement The provider has reviewed the documentation as recorded by the Luhibnhan Francois Provider Attestation: All medical record entries made by the Scribe were at my direction and personally dictated by me. I have reviewed the chart and agree that the record accurately reflects my personal performance of the history, physical exam, medical decision making, and the department course for this patient. I have also personally directed, reviewed, and agree with the discharge instructions and disposition.
[2017-12-16] MEDS ORDERED: Magnesium Citrate Oral SOL (300 ml) ONE (23:02)
[2017-12-16 23:04] VITALS: BP 145/85; PULSE 66; TEMP 98.2
[2017-12-17 01:08] VITALS: O2SAT 100
== END 2017-12-16 23:04 | disposition home or self-care (01) ==
LOC: C.ER 21:47
DX: R10.84 Generalized abdominal pain (principal)

== ENCOUNTER 2018-04-03 08:19 | Emergency (ER) | payer MEDICAID, OTHER ==
[2018-04-03 08:19] VITALS: BMI 30.5
[2018-04-03 08:31] VITALS: RESP 18; TEMP 98.1
--- NOTE | 2018-04-03 09:32 | C.PDOC ---
History Of Present Illness 47 y/o male presents to the ER complaining of left sided back pain which has been present for the past 2 days. 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 Patient reports that he was not able to go to work today. Denies having known trauma, falls, weakness, numbness, urinary symptoms, and history of saddle anasthesia. Time Seen by Provider: 04/03/18 08:45 Chief Complaint (Nursing): Back Pain History Per: Patient History/Exam Limitations: no limitations Onset/Duration Of Symptoms: Days Current Symptoms Are (Timing): Still Present Severity: Moderate Past Medical History Reviewed: Historical Data, Nursing Documentation, Vital Signs Vital Signs: Last Vital Signs Temp 98.1 F 04/03/18 08:27 Pulse 68 04/03/18 08:27 Resp 18 04/03/18 08:27 BP 131/85 04/03/18 08:27 Pulse Ox 99 04/03/18 08:27 - Medical History PMH: No Chronic Diseases Other Surgeries: Hx of surgeries - [facility] Procedures DRAINAGE OF SCROTUM, OPEN APPROACH (09/07/17) Family History: States: No Known Family Hx - Social History Hx Tobacco Use: No Hx Alcohol Use: Yes Hx Substance Use: No - Immunization History Hx Tetanus Toxoid Vaccination: No Hx Influenza Vaccination: Yes Hx Pneumococcal Vaccination: No Review Of Systems Except As Marked, All Systems Reviewed And Found Negative. Constitutional: Negative for: Fever, Chills Genitourinary: Negative for: Dysuria, Frequency, Incontinence, Hematuria Musculoskeletal: Positive for: Back Pain Neurological: Negative for: Weakness, Numbness Physical Exam - Physical Exam Appears: Non-toxic, No Acute Distress Skin: Normal Color, Warm, Dry Head: Atraumatic, Normacephalic Eye(s): bilateral: Normal Inspection Nose: Normal Oral Mucosa: Moist Neck: Supple Chest: Symmetrical Cardiovascular: Rhythm Regular Respiratory: Normal Breath Sounds, No Rales, No Rhonchi, No Wheezing Gastrointestinal/Abdominal: Soft, No Tenderness, No Guarding, No Rebound Back: Paraspinal Tenderness (left sided paralumbar paraspinal tenderness), Straight Leg Raising (positive left leg) Extremity: Normal ROM Neurological/Psych: Oriented x3, Normal Speech ED Course And Treatment O2 Sat by Pulse Oximetry: 99 (RA) Pulse Ox Interpretation: Normal Medical Decision Making Medical Decision Making: Plan: --Flexeril PO --Toradol IM neuro intact, no saddle anesthesia, steady gait. Disposition - Disposition Referrals: Merlin Cotto MD [Non-Staff] - Disposition: HOME/ ROUTINE Disposition Time: 15:00 Condition: GOOD Additional Instructions: return to er with worsening symptoms or concenrs. Prescriptions: Cyclobenzaprine [Cyclobenzaprine HCl] 10 mg PO DAILY PRN #10 tab PRN Reason: Muscle Spasm RX: Naproxen 500 mg PO BID PRN #14 tab PRN Reason: Pain, Mild (1-3) Instructions: Sciatica (DC) Forms: [employer] ([place]azi) - Clinical Impression Clinical Impression: Sciatica, Low back pain - Scribe Statement The provider has reviewed the documentation as recorded by the Jonathan Luna Provider Attestation: All medical record entries made by the Scribe were at my direction and personally dictated by me. I have reviewed the chart and agree that the record accurately reflects my personal performance of the history, physical exam, medical decision making, and the department course for this patient. I have also personally directed, reviewed, and agree with the discharge instructions and dis position.
[2018-04-03 10:02] VITALS: BP 125/73; PULSE 76
[2018-04-03 15:07] VITALS: O2SAT 99
== END 2018-04-03 10:02 | disposition home or self-care (01) ==
LOC: C.ER 08:19
DX: M54.42 Lumbago with sciatica, left side (principal)
CPT/HCPCS: 96372; 99283; J1885

== ENCOUNTER 2018-07-02 16:56 | Emergency (ER) | payer MEDICAID, OTHER ==
[2018-07-02 16:56] VITALS: BMI 30.5
[2018-07-02 17:02] VITALS: BP 123/84; PULSE 70; RESP 18; TEMP 97.6; O2SAT 100
--- NOTE | 2018-07-02 17:32 | C.PDOC ---
History Of Present Illness Patient is a 48 year old male who presents to the ED c/o 3 day history of constipation and cholicky epigastric pain. Patient was seen by this physician previously. Patient is eating diet of plantains, yucca, protein shakes, and minimal water. He has not trialed laxatives. He denies any nausea, vomiting, CP, or SOB. Time Seen by Provider: 07/02/18 17:10 Chief Complaint (Nursing): Abdominal Pain History Per: Patient History/Exam Limitations: no limitations Onset/Duration Of Symptoms: Days (3) Current Symptoms Are (Timing): Still Present Location Of Pain/Discomfort: Epigastric Associated Symptoms: Constipation. denies: Nausea, Vomiting, Chest Pain Recent travel outside of the [place]: No Additional History Per: Patient Past Medical History Reviewed: Historical Data, Nursing Documentation, Vital Signs Vital Signs: Last Vital Signs Temp 97.6 F 07/02/18 16:59 Pulse 70 07/02/18 16:59 Resp 18 07/02/18 16:59 BP 123/84 07/02/18 16:59 Pulse Ox 100 07/02/18 16:59 - Medical History PMH: No Chronic Diseases Surgical History: No Surg Hx - [facility] Procedures DRAINAGE OF SCROTUM, OPEN APPROACH (09/07/17) Family History: States: Unknown Family Hx - Social History Hx Tobacco Use: No Hx Alcohol Use: Yes Hx Substance Use: No - Immunization History Hx Tetanus Toxoid Vaccination: No Hx Influenza Vaccination: Yes Hx Pneumococcal Vaccination: No Review Of Systems Cardiovascular: Negative for: Chest Pain Respiratory: Negative for: Shortness of Breath Gastrointestinal: Positive for: Abdominal Pain (epigastric), Constipation (3 days). Negative for: Nausea, Vomiting Physical Exam - Physical Exam Appears: Non-toxic, No Acute Distress, Other (tall obese male ) Skin: Warm, Dry Head: Atraumatic, Normacephalic Oral Mucosa: Moist Neck: Normal ROM, Supple Chest: Symmetrical, No Deformity Cardiovascular: Rhythm Regular, No Murmur Respiratory: Normal Breath Sounds, No Rales, No Rhonchi, No Wheezing Gastrointestinal/Abdominal: Tenderness (dull to percussion left abdomen, tympanic in right abdomen ), No Other ( Muphy's and McBurney's point ) Extremity: Normal ROM Neurological/Psych: Oriented x3, Normal Speech ED Course And Treatment O2 Sat by Pulse Oximetry: 100 (on RA) Pulse Ox Interpretation: Normal Medical Decision Making Medical Decision Making: Plan: Citrate of Mag 300ml PO prob constipation very constipating diet neg Moran/Allan's defers w/u w informed consent for empiric laxative therapy and f/u in AM PRN Disposition Doctor Will See Patient In The: Office Counseled Patient/Family Regarding: Studies Performed, Diagnosis - Disposition Referrals: [facility] [Outside] [email or web address] [Outside] [facility] [Outside] [facility] [Outside] Disposition: HOME/ ROUTINE Disposition Time: 17:32 Condition: GOOD Additional Instructions: drink laxative now and re-eval after using bathroom 2-3 times Avoid Rice, Platanos, bananas, Yuca (VERY constipating) Occasional laxatives (ie, Citrucel or Miralax) to have at least one bowel movement per day. Return in AM as needed. Instructions: Constipation in Adults Forms: [email or web address] ([place]) - Clinical Impression Clinical Impression: Abdominal pain, colicky - Scribe Statement Keyana Pulido All medical record entries made by the Scribe were at my direction and personally dictated by me. I have reviewed the chart and agree that the record accurately reflects my personal performance of the history, physical exam, medical decision making, and the department course for this patient. I have also personally directed, reviewed, and agree with the discharge instructions and disposition.
[2018-07-02] MEDS ORDERED: Magnesium Citrate Oral SOL (300 ml) ONE (18:08)
[2018-07-02] MEDS ORDERED: Magnesium Citrate Oral SOL (300 ml) PO ONE (18:11)
== END 2018-07-02 17:58 | disposition home or self-care (01) ==
LOC: C.ER 16:56
DX: R10.84 Generalized abdominal pain (principal)